=== PATIENT | female | born 1960 | race Caucasian/White ===

== ENCOUNTER → 2020-12-13 | Outpatient (CLI) | payer OTHER ==
[~2020-12-13] MED LIST: ACAM0.05 PO; FOLI1TAB11 PO; LISI10TA22 PO; MELATONIN PO; MULT1TAB8 PO; NICO14DI3 TD; OXAZ30CA2 PO; TYLE325T5 PO; VITAMIN B-1100 M4 PO
== END ==
LOC: M LABSMTC 11:49
PROVIDERS: ATTEND Family Medicine
DX: Z20.828 Contact with and (suspected) exposure to other viral communicable diseases (principal); Z11.59 Encounter for screening for other viral diseases
CPT/HCPCS: C9803; U0003

== ENCOUNTER 2021-03-29 04:14 | Emergency (ER) | payer OTHER ==
[~2021-03-29] VITALS: Ht 180.3 cm; Wt 87.0 kg
[2021-03-29] MEDS ORDERED: MILK140C PO (04:29)
[2021-03-29] MEDS ORDERED: NABU-71 PO (04:33)
[2021-03-29] MEDS ORDERED: BACL10TA2 OP (04:33)
[2021-03-29] MEDS ORDERED: CYCLOBENZAPRINE 10MG TABLET PO ONE (06:25)
[2021-03-29] MEDS ORDERED: LIDOCAINE 5% (LIDODERM) PATCH TD ONE (06:25)
[2021-03-29] MEDS ORDERED: ACETAMINOPHEN TAB 650MG DOSE (2X325MG) PO ONE (06:25)
[2021-03-29] MEDS ORDERED: MORPHINE 4 MG/ML 1ML VIAL/SYRINGE (J2270) IV ONE (07:30)
[2021-03-29] MEDS ORDERED: methylPREDNISolone 125MG 2ML VIAL IV ONE (07:30)
[2021-03-29] MEDS ORDERED: ONDANSETRON 4MG/2ML VIAL IV ONE (07:30)
[2021-03-29] MEDS ORDERED: LIDO5DIS41 TOP (09:42)
[2021-03-29] MEDS ORDERED: OXYC1TAB23 PO (09:42)
[2021-03-29 10:09] VITALS: BP 158/70
[2021-03-29] MEDS ORDERED: **NOTE PATIENT COMMENT** MISC XX SCH (21:00)
[2021-05-11] MEDS ORDERED: TRAM50TA2 PO (11:14)
[2021-05-11] MEDS ORDERED: CYCL-707 PO (11:14)
[2021-06-29] MEDS ORDERED: MM S100C PO (16:29)
[2021-07-14] MEDS ORDERED: OMEP-218 PO (16:33)
[2021-07-14] MEDS ORDERED: LORA1TAB4 PO (16:40)
[2021-08-11] MEDS ORDERED: OMEP-218 PO (15:06)
== END 2021-03-29 11:14 | disposition home or self-care (01) ==
LOC: M ED 04:14
DX: M51.34 Other intervertebral disc degeneration, thoracic region (principal); M47.814 Spondylosis without myelopathy or radiculopathy, thoracic region; R59.0 Localized enlarged lymph nodes; R93.7 Abnormal findings on diagnostic imaging of other parts of musculoskeletal system; M50.30 Other cervical disc degeneration, unspecified cervical region; M19.90 Unspecified osteoarthritis, unspecified site; Z86.16 Personal history of COVID-19; Z85.3 Personal history of malignant neoplasm of breast; Z92.21 Personal history of antineoplastic chemotherapy; Z92.3 Personal history of irradiation; F41.9 Anxiety disorder, unspecified; F32.9 Major depressive disorder, single episode, unspecified; F17.200 Nicotine dependence, unspecified, uncomplicated; F10.10 Alcohol abuse, uncomplicated; Z91.030 Bee allergy status; Z91.040 Latex allergy status
CPT/HCPCS: 72125; 72128; 96374; 96375; 99284; J2270; J2405; J2930

== ENCOUNTER → 2021-05-23 | Outpatient (CLI) | payer OTHER ==
[~2021-05-23] MED LIST changes: +BACL10TA2 OP; +CYCL-707; +LIDO5DIS41 TOP; +MILK140C PO; +NABU-71 PO; +OXYC1TAB23 PO; +TRAM50TA2
--- NOTE | 2021-05-23 19:00 | REP ---
INDICATION: RESTAGING HISTORY OF BREAST CANCER Z85.3. COMPARISON: None. TECHNIQUE: 9.38 mCi of FDG 18 was administered intravenously via the left AC. Approximately 45-60 minutes following the administration of the radiopharmaceutical, a PET-CT imaging was obtained from the skull base through the pubic symphysis. FINDINGS: Head and neck: There is a normal distribution of FDG activity in the visualized brain parenchyma. There are calcifications in both palatine tonsils consistent with chronic inflammation. There is calcific vascular disease of both carotid bifurcations. Chest: There is a mass in the mid esophagus, measuring 5.0 cm in vertical dimension 2.6 cm in transverse dimension and 1.5 cm in AP dimension, demonstrating hypermetabolic activity, max SUV 14.2. There are multiple reactive paraesophageal lymph nodes, the largest on the right, measuring 15 x 15 mm, demonstrating FDG activity, max SUV 3.0. There is no significant FDG activity in the pulmonary parenchyma. There are no pleural effusions. The heart size is upper limits of normal. There is no pericardial effusion. There is calcific vascular disease of the thoracic aorta and coronary arteries. Abdomen and pelvis: There are multiple small gallstones. There is calcific vascular disease of the abdominal aorta. Musculoskeletal: There are no lytic or sclerotic foci or areas of abnormal FDG activity within the visualized axial and appendicular skeleton. IMPRESSION: 1. Hypermetabolic mass in the mid esophagus consistent with a primary esophageal carcinoma. There is no abnormal dilatation of the esophagus above the mass. 2. Multiple reactive paraesophageal and mediastinal lymph nodes, the largest of which demonstrates abnormal FDG activity, consistent with metastatic disease. 3. Cholelithiasis. 4. Other findings as noted. <Electronically signed by Yoel Joe > 05/23/21 2829
== END ==
LOC: M PLARAD 07:32
PROVIDERS: ATTEND Specialist
DX: Z85.3 Personal history of malignant neoplasm of breast (principal); D48.0 Neoplasm of uncertain behavior of bone and articular cartilage; K80.20 Calculus of gallbladder without cholecystitis without obstruction; I70.0 Atherosclerosis of aorta; K22.89 Other specified disease of esophagus
CPT/HCPCS: 78815; A9552

== ENCOUNTER → 2021-06-30 | Outpatient (CLI) | payer OTHER ==
[~2021-06-30] MED LIST changes: +ATIV2TAB PO; -CYCL-707; +CYCL-707 PO; +DIFL50TA PO; +DOCU10ELUD GT; +DOCU5LIQ GT; +LEVO500T4 PO; +LORA1TAB4 PO; +LORA2TA PO; +MIDO5TA PO; +MM S100C PO; +MOXI400T11 PO; +NICO1DIS7 TOP; +NICO7DIS30 TD; +OMEP-173 PO; +ONDA8TAB8 PO; +PROC10TA5 PO; +RISATAB3 PO; -TRAM50TA2; +TRAM50TA2 PO
== END ==
LOC: M LABSMTC 09:08
PROVIDERS: ATTEND Anesthesiology
DX: Z01.812 Encounter for preprocedural laboratory examination (principal); Z20.822 Contact with and (suspected) exposure to COVID-19

== ENCOUNTER → 2021-06-30 | Outpatient (CLI) | payer OTHER ==
[~2021-06-30] MED LIST changes: +LIDOCAINE 1% MDV 20ML VIAL As Ordered ONE; +MIDAZOLAM INJ 2MG/2ML VIAL (J2250 PER 1MG) As Ordered ONE; +NS 1,000 ML IV SCH; +ceFAZolin 2 GM/D5W 50 ML IV BAG (J0690 PER 500MG) As Ordered ONE; +ceFAZolin SOD 2 GM in IV 1 EA IV ONE; +diphenhydrAMINE 50MG/ML VIAL (J1200) As Ordered ONE; +fentaNYL 100 MCG/2 ML INJECTION As Ordered ONE
[2021-06-30 13:00] VITALS: BP 110/70
== END ==
LOC: M IRPRO 09:24
PROVIDERS: ATTEND Specialist
DX: C50.919 Malignant neoplasm of unspecified site of unspecified female breast (principal); Z91.030 Bee allergy status; Z91.040 Latex allergy status
CPT/HCPCS: 36561; 99152; 99153; C1769; C1788; C1894; J0690; J1200; J1642; J1644; J2250; J3010

== ENCOUNTER 2021-07-01 12:10 | Day surgery (SDC) | payer OTHER ==
[~2021-07-01] VITALS: Ht 180.3 cm; Wt 84.8 kg
[~2021-07-01 12:10] MED LIST changes: -ATIV2TAB PO; -DIFL50TA PO; -DOCU10ELUD GT; -DOCU5LIQ GT; -LEVO500T4 PO; -LIDOCAINE 1% MDV 20ML VIAL As Ordered ONE; -LORA1TAB4 PO; -LORA2TA PO; -MIDAZOLAM INJ 2MG/2ML VIAL (J2250 PER 1MG) As Ordered ONE; -MIDO5TA PO; -MOXI400T11 PO; -NICO1DIS7 TOP; -NICO7DIS30 TD; +NS 1,000 ML IV ONE; -NS 1,000 ML IV SCH; -OMEP-173 PO; -ONDA8TAB8 PO; -PROC10TA5 PO; -RISATAB3 PO; -ceFAZolin 2 GM/D5W 50 ML IV BAG (J0690 PER 500MG) As Ordered ONE; -ceFAZolin SOD 2 GM in IV 1 EA IV ONE; -diphenhydrAMINE 50MG/ML VIAL (J1200) As Ordered ONE; -fentaNYL 100 MCG/2 ML INJECTION As Ordered ONE
--- OUTSIDE RECORDS SUMMARY | 2021-07-01 12:14 | CCD | Continuity of Care Document ---
Author Author Cedric DUNCAN MD Organization Unknown Address [address] [place] [address] Phone [phone] Care Team Providers Care Paint Stock Clerk Name Role Phone Mayra Cruz P.A.-C. AUTM [phone] Artis Jaimes M.D. AUTM Unavailable Problems Active Problems Provider Date Screening for malignant neoplasm of colon Iliana Cisneros Onset: 05/15/2012 Social History Type Date Description Comments Sex Unknown ETOH Use 5-7 a day Tobacco Use Start: Unknown Smokes 1/2 Pack A Day - 1 PPD Allergies and adverse reactions Active Allergies Criticality Reaction | Severity Comments Date Latex Unable to assess criticality 05/03/2012 Bee Sting Unable to assess criticality 03/08/2015 Medications Active Medications SIG Qnty Indications Ordering Provide r Date Tramadol HCL 50mg Tablets 1-2 every 6 hours as needed for pain after surgery Unknown Flexeral 2 daily Unknown Stool Softener 100mg Capsules take one capsule by mouth twice a day before a meal (avoid/ hold if having diarrhea) Unknown History Medications No Active Medications Unknown 07/2020 - 06/29/2021 Immunizations Description No Information Available Vital Signs Date Vital Result Comment 06/29/2021 11:07am BP Systolic 142 mmHg BP Diastolic 92 mmHg Height 72 inches 6'0" Weight 189.00 lb BMI (Body Mass Index) 25.6 kg/m2 [place] Body Weight 160 lb Weight 85.730 kg BSA (Body Surface Area) 2.08 m2 03/08/2015 10:17am BP Systolic 150 mmHg BP Diastolic 90 mmHg Height 72 inches 6'0" Weight 231.50 lb BMI (Body Mass Index) 31.4 kg/m2 [place] Body Weight 160 lb Weight 105.008 kg BSA (Body Surface Area) 2.27 m2 Results Description No Information Available Procedures Date Code Description Status 06/29/2021 08647 Office/Outpatient New Moderate M DM 45-59 Minutes Completed Medical Devices Description No Information Available Encounters Type Date Location Provider Dx Diagnosis Office Visit 06/29/2021 10:45a [facility] Pra ctice Gio Duncan MD R93.3 Abnormal findings on dx imag ing of prt digestive tract R13.10 Dysphagia, unspecified Assessments Date Code Description Provider 06/29/2021 R93.3 Abnormal findings on diagnostic imaging of other parts of digestive tract Gio Duncan MD 06/29/2021 R13.10 Dysphagia, unspecified Gio freeman MD Plan of Treatment Future Appointment(s):* 07/01/2021 1:45 pm - Gio Duncan MD at [facility] 06/29/2021 - Gio Duncan MD* R93.3 Abnormal findings on diagnostic imaging of other parts of digestive tract * R13.10 Dysphagia, unspecified * * New Orders:* EGD/Upper Endoscopy, Ordered: 06/29/21 Functional Status Description No Information Available Mental Status Description No Information Available Referrals Refer to Reason for Referral Status Appt Date Gio Duncan M.D. K22.89-OTHER SPECIFIED DISEASE OF ESOPHAGUS Scheduled 06/29/2021 [facility], Gastroenterology [address], [address] [place] [address] [phone]
--- OUTSIDE RECORDS SUMMARY | 2021-07-01 12:14 | CCD ---
Author Author [facility] Organization [facility] Address Unknown Phone Unavailable Care Team Providers Care Resident Physician In Radiology Name Role Phone Monica Beckett Unavailable PROBLEMS Type Condition ICD9-CM Code [id number] Code Onset Dates Condition S tatus W/U Status Risk SNOMED Code Notes Problem Elevated blood pressure 796.2 Active confirmed 94341477 Problem Lower extremity edema 782.3 Active confirmed 580598920 Problem Alcohol abuse 305.00 Active confirmed 676905 05 Problem Personal history of breast cancer V10.3 Active confirmed 742430776 Problem Elevated liver enzymes 790.5 Active confirmed 651801475 Problem Chronic diarrhea 787.91 Active confirmed 236 556896 Problem Tachycardia 785.0 Active confirmed 3178469 Problem History of breast cancer Z85.3 Active confirmed 520160013 We will refer her to the [facility] Problem Insomnia 780.52 Active confirmed 931840990 Problem Other chronic pain G89.29 Active confirmed 8 2542425 Problem Hypertension 401.9 Active confirmed 9756535 3 Problem GERD (gastroesophageal reflux disease) 530.81 A ctive confirmed 663768517 Problem Pancytopenia 284.19 Active confirmed 1254973 05 Problem Macrocytosis 289.89 Active confirmed 6581630 00 Problem H/O malignant neoplasm of female breast V10.3 Active confirmed 598754452 ALLERGIES Allergen (clinical drug ingredient) Drug/Non Drug Allergy do cumented on EMR Reaction Allergy Type Onset Date Status Bee Sting Anaphylaxis Drug Allergy Active Latex (for allergy use only) swelling Non Drug Allergy Active ENCOUNTERS from 1959 to 2021-05-10 Encounter Location Date Provider Diagnosis [address] [place] [address] Mar, Monica Beckett IMMUNIZATIONS No Information SOCIAL HISTORY Tobacco Use: Social History Observation Description Date Details (start date - stop date) Current Smoker Sex Assigned At : Social History Observation Description Sex Assigned At Unknown Tobacco Use: Question Answer Notes Are you a: current smoker REASON FOR REFERRAL No Information VITAL SIGNS No information MEDICATIONS Medication SIG (Take, Route, Frequency, Duration) Notes Start Da te End Date Status COMPRESSION STOCKINGS 1 as directed dx:782.3 Jan, Not-Taking Omeprazole 40 mg 1 capsule Orally Once a day Dec, Not-Taking Multivitamin _ 1 tab(s) Orally once a day Not-Taking Cyclobenzaprine HCl 10 MG 1 tablet as needed for muscl e spasms Orally 3 times a day for 30 Days Mar, Active Nabumetone 500 MG 2 tablets Orally Once a day Active Milk Thistle 1000 MG as directed Orally 4 caps daily Active Folic Acid 1 MG 1 tablet Orally Once a day for 30 days Not-Taking Blood Pressure Kit 1 as directed dx:401.9 Jan, Not-Taking Lidocaine Pain Relieving 4 % as directed Externally Feb Active Vitamin B-1 100 MG 1 tablet Orally Once a day for 30 days Not-Taking traMADol HCl 50 MG 1 tablet as needed Orally 3 times a day for 3 0 Days Mar, Active PROCEDURES No Information RESULTS No Results REASON FOR VISIT bone scan MEDICAL (GENERAL) HISTORY Type Description Date Medical History Breast cancer - 2004 s/p lum pectomy - patient has not had any routine f/u in 3-4 years including mammograms. Medical History Hypertension Medical History Dependent LE edema. Medical History Borderline hyperlipidemia - 10 year ASCV D risk 6.7% (02/2014) Medical History Etoh abuse - Liver u/s 5 - normal liver, pancreas and gallbladder. Medical History Fatty Liver per CT - 12/2014 Medical History Chronic low back pain Medical History Intervertebral diseas of cervical spine per [place] Surgical History lumpectomy 2004 Surgical History Colonoscopy 2012 Surgical History COVID vaccine - has question s about where and how to get it (discussed 04/11/2021) Hospitalization History childbirth x1 Hospitalization History low b/p 12/2014 Hospitalization History right lumpectomy, breast cancer, unk nown type 2006 Goals Section No Information Health Concerns No Information MEDICAL EQUIPMENT No Information MENTAL STATUS No Information FUNCTIONAL STATUS No Information ASSESSMENTS No Information PLAN OF TREATMENT Medication Medication Name Sig Start Date Stop Date Cyclobenzaprine HCl 10 MG 1 tablet as needed for muscl e spasms Orally 3 times a day for 30 Days Mar, traMADol HCl 50 MG 1 tablet as needed Orally 3 times a day for 30 Days Mar, Next Appt Details Provider Name:Monica Beckett, 10-2 0 09:00:00 AM, [address] [facility] [address] [facility], , [place], [address], Insurance Providers Payer Name Payer Address Payer Phone Insured Name Patient Relati onship to Insured Coverage Start Date Coverage End Date [facility] [employer] [address] [facility] [phone] [employer]FFY HIGGINBOTHAM self
--- OUTSIDE RECORDS SUMMARY | 2021-07-01 12:14 | CCD ---
Author Author [facility] Organization [facility] Address Unknown Phone Unavailable Care Team Providers Care Inspector Barrel Name Role Phone Monica Beckett Unavailable PROBLEMS Type Condition ICD9-CM Code LAC35-ON Code Onset Dates Condition S tatus W/U Status Risk SNOMED Code Notes Problem Elevated blood pressure 796.2 Active confirmed 49305885 Problem Lower extremity edema 782.3 Active confirmed 994056315 Problem Alcohol abuse 305.00 Active confirmed 616391 05 Problem Personal history of breast cancer V10.3 Active confirmed 405436697 Problem Elevated liver enzymes 790.5 Active confirmed 814087702 Problem Chronic diarrhea 787.91 Active confirmed 236 537833 Problem Tachycardia 785.0 Active confirmed 9794600 Problem History of breast cancer Z85.3 Active confirmed 333319299 We will refer her to the [facility] Problem Insomnia 780.52 Active confirmed 756182146 Problem Other chronic pain G89.29 Active confirmed 8 1022761 Problem Hypertension 401.9 Active confirmed 0422236 3 Problem GERD (gastroesophageal reflux disease) 530.81 A ctive confirmed 634172038 Problem Pancytopenia 284.19 Active confirmed 8721774 05 Problem Macrocytosis 289.89 Active confirmed 0869335 00 Problem H/O malignant neoplasm of female breast V10.3 Active confirmed 829037403 ALLERGIES Allergen (clinical drug ingredient) Drug/Non Drug Allergy do cumented on EMR Reaction Allergy Type Onset Date Status Bee Sting Anaphylaxis Drug Allergy Active Latex (for allergy use only) swelling Non Drug Allergy Active ENCOUNTERS from 1960 to 2021-05-09 Encounter Location Date Provider Diagnosis [address] [phone] [place] [address] 16 Sep, [address] [place] [address] IMMUNIZATIONS No Information SOCIAL HISTORY Tobacco Use: [...] Information RESULTS No Results REASON FOR VISIT Labs/ Pathology MEDICAL (GENERAL) HISTORY Type Description Date Medical [...] Mar, Next Appt Details Provider Name:Monica Beckett, 2020-10-2 0 09:00:00 AM, [address] [facility] , [place], [address], Insurance Providers Payer Name Payer Address Payer Phone Insured Name Patient Relati onship to Insured Coverage Start Date Coverage End Date [facility] COMM[facility] PLAN [facility] [place] [place] [address] [facility] [address] BUFFY HIGGINBOTHAM self
--- OUTSIDE RECORDS SUMMARY | 2021-07-01 12:14 | CCD ---
Author Author [facility] Organization [facility] Address Unknown Phone Unavailable Care Team Providers Care Child Support Officer Name Role Phone Monica Beckett Unavailable PROBLEMS Type Condition ICD9-CM Code USJ69-FB Code Onset Dates Condition S tatus W/U Status Risk SNOMED Code Notes Problem Elevated blood pressure 796.2 Active confirmed 48450045 Problem Lower extremity edema 782.3 Active confirmed 277974915 Problem Alcohol abuse 305.00 Active confirmed 184069 05 Problem Personal history of breast cancer V10.3 Active confirmed 773979564 Problem Elevated liver enzymes 790.5 Active confirmed 138775400 Problem Chronic diarrhea 787.91 Active confirmed 236 503932 Problem Tachycardia 785.0 Active confirmed 5564056 Problem History of breast cancer Z85.3 Active confirmed 802808401 We will refer her to the [facility] Problem Insomnia 780.52 Active confirmed 655705188 Problem Other chronic pain G89.29 Active confirmed 8 1531748 Problem Hypertension 401.9 Active confirmed 0150547 3 Problem GERD (gastroesophageal reflux disease) 530.81 A ctive confirmed 928917411 Problem Pancytopenia 284.19 Active confirmed 5802391 05 Problem Macrocytosis 289.89 Active confirmed 4830286 00 Problem H/O malignant neoplasm of female breast V10.3 Active confirmed 413861986 ALLERGIES Allergen (clinical drug ingredient) Drug/Non Drug Allergy do cumented on EMR Reaction Allergy Type Onset Date Status Latex (for allergy use only) swelling Drug Allergy Active Bees Anaphylaxis Non Drug Allergy Active ENCOUNTERS from 1959 to 2021-04-14 Encounter Location Date Provider Diagnosis [address] [phone] [place] [address] 16 Mar, 2021 Monica Beckett IMMUNIZATIONS No Information SOCIAL HISTORY [...] Information RESULTS No Results REASON FOR VISIT [facility] Referral MEDICAL (GENERAL) HISTORY Type Description Date Medical [...] Mar, Next Appt Details Provider Name:Monica Beckett, 2021-03-31 8 09:00:00 AM, [address] , , [place], [address], Insurance Providers Payer Name Payer Address Payer Phone Insured Name Patient Relati onship to Insured Coverage Start Date Coverage End Date [facility] [address] [facility] [address] BUFFY HIGGINBOTHAM self
--- OUTSIDE RECORDS SUMMARY | 2021-07-01 12:14 | CCD ---
Author Author [facility] Organization [facility] Address Unknown Phone Unavailable Care Team Providers Care Splicer Machine Operator Name Role Phone Monica Beckett Unavailable PROBLEMS Type Condition ICD9-CM Code BVL63-FF Code Onset Dates Condition S tatus W/U Status Risk SNOMED Code Notes Problem Elevated blood pressure 796.2 Active confirmed 33092055 Problem Lower extremity edema 782.3 Active confirmed 672077454 Problem Alcohol abuse 305.00 Active confirmed 027575 05 Problem Personal history of breast cancer V10.3 Active confirmed 916761887 Problem Elevated liver enzymes 790.5 Active confirmed 199082890 Problem Chronic diarrhea 787.91 Active confirmed 236 750336 Problem Tachycardia 785.0 Active confirmed 4729835 Problem History of breast cancer Z85.3 Active confirmed 950144058 She is now being followed by the [facility] Problem Insomnia 780.52 Active confirmed 461303748 Problem Other chronic pain G89.29 Active confirmed 8 1474495 Problem Hypertension 401.9 Active confirmed 5533696 3 Problem GERD (gastroesophageal reflux disease) 530.81 A ctive confirmed 782096967 Problem Pancytopenia 284.19 Active confirmed 6367076 05 Problem Macrocytosis 289.89 Active confirmed 8888255 00 Problem H/O malignant neoplasm of female breast V10.3 Active confirmed 061175704 ALLERGIES Allergen (clinical drug ingredient) Drug/Non Drug Allergy do cumented on EMR Reaction Allergy Type Onset Date Status Bee Sting Anaphylaxis Drug Allergy Active Latex Latex swelling Drug Allergy Active ENCOUNTERS from 1960 to 2021-06-26 Encounter Location Date Provider Diagnosis [facility] [address] [place] [address] May, Monica Beckett Cervicalgia M54.2 ; Pain in thoracic spi ne M54.6 ; Low back pain M54.5 ; Other chronic pain G89.29 and History of breast cancer Z85.3 IMMUNIZATIONS No Information SOCIAL HISTORY Tobacco Use: Social History Observation Description Date Details (start date - stop date) Current Smoker Sex Assigned At : Social History Observation Description Sex Assigned At Unknown Audit Question Answer Notes Total Score: 1 Interpretation: Alcohol Education Drug and Alcohol Question Answer Notes Total Score: 0 Interpretation: No problems reported Tobacco Use: Question Answer Notes Are you a: current smoker REASON FOR REFERRAL No Information VITAL SIGNS Weight 193 lbs May, Weight-kg 87.54 kg May, Height 5'10" in May, BMI 27.69 kg/m2 May, Heart Rate 129 /min May, Respiratory Rate 18 /min May, Temperature 97.1 degrees Fahrenheit May, Oximetry 100 May, Blood pressure systolic 130 mm Hg May, Blood pressure diastolic 82 mm Hg May, MEDICATIONS Medication SIG (Take, Route, Frequency, Duration) Notes Start Da te End Date Status Milk Thistle 1000 MG as directed Orally 4 caps daily Active traMADol HCl 50 MG 1 tablet as needed Orally 3 times a day for 3 0 Days Mar, Active Cyclobenzaprine HCl 10 MG 1 tablet as needed for muscl e spasms Orally 3 times a day for 30 Days Mar, Active PROCEDURES No Information RESULTS No Results REASON FOR VISIT est care MEDICAL (GENERAL) HISTORY Type Description Date Medical [...] No Information FUNCTIONAL STATUS No Information ASSESSMENTS Encounter Date Diagnosis Assessment Notes Treatment Notes Treatm ent Clinical Notes May, Cervicalgia (ICD-10 - M54.2) Stable on t ramadol and cyclobenzaprine May, Pain in thoracic spine (ICD-10 - M54.6) May, Low back pain (ICD-10 - M54.5) May, Other chronic pain (ICD-10 - G89.29) May, History of breast cancer (ICD-10 - Z85.3 ) She is now being followed by the [facility] PLAN OF TREATMENT Next Appt Details 3 Months, 30 m in Reason:back pain, smok ing Provider Name:Monica Beckett, 2021-08-01 1 08:30:00 AM, [address], , [place], [address], Follow Up:3 Months, 30 m inback pain, smoking Insurance Providers Payer Name Payer Address Payer Phone Insured Name Patient Relati onship to Insured Coverage Start Date Coverage End Date [facility] COMM[facility] PLAN [facility] [address] [facility] [phone] BUFFY HIGGINBOTHAM self
--- OUTSIDE RECORDS SUMMARY | 2021-07-01 12:14 | CCD | Continuity of Care Document ---
Author Author Cedric DUNCAN MD Organization Unknown Address [address] [place] [address] Phone [phone] Care Team Providers Care Architect Marine Name Role Phone Mayra Cruz P.A.-C. AUTM Artis Jaimes M.D. AUTM Unavailable Problems Active [...] lb BMI (Body Mass Index) 25.6 kg/m2 [place] Body Weight 160 lb Weight 85.730 kg BSA (Body Surface Area) 2.08 m2 03/08/2015 10:17am BP Systolic 150 mmHg BP Diastolic 90 mmHg Height 72 inches 6'0" Weight 231.50 lb BMI (Body Mass Index) 31.4 kg/m2 [place] Body Weight 160 lb Weight 105.008 kg BSA (Body Surface Area) 2.27 m2 Results Description No Information Available Procedures Date Code Description Status 06/29/2021 51694 Office/Outpatient New Moderate M DM 45-59 Minutes Completed Medical Devices Description No Information Available Encounters Type Date Location Provider Dx Diagnosis Office Visit 06/29/2021 10:45a [facility] Pra ctice Gio Duncan MD R93.3 Abnormal findings on dx imag ing of prt digestive tract R13.10 Dysphagia, unspecified Assessments Date Code Description Provider 06/29/2021 R93.3 Abnormal findings on diagnostic imaging of other parts of digestive tract Gio Duncan MD 06/29/2021 R13.10 Dysphagia, unspecified Gio freeman MD Plan of Treatment Future Appointment(s):* 07/01/2021 1:45 pm - Gio Duncan MD at [facility] 06/29/2021 - Gio Duncan MD* R93.3 Abnormal findings on diagnostic imaging of other parts of digestive tract * R13.10 Dysphagia, unspecified * * New Orders:* EGD/Upper Endoscopy, Ordered: 06/29/21 Functional Status Description No Information Available Mental Status Description No Information Available Referrals Refer to Reason for Referral Status Appt Date Gio Duncan M.D. K22.89-OTHER SPECIFIED DISEASE OF ESOPHAGUS Scheduled 06/29/2021 [facility], Gastroenterology [address], [address] [place] [address] [phone]
--- OUTSIDE RECORDS SUMMARY | 2021-07-01 12:14 | CCD | Continuity of Care Document ---
Author Author Cedric DUNCAN MD Organization Unknown Address [address] [place] [address] Phone [phone] Care Team Providers Care Forensic Toxicologist Name Role Phone Mayra Cruz P.A.-C. AUTM [...] lb BMI (Body Mass Index) 25.6 kg/m2 [place] Body Weight 160 lb Weight 85.730 kg BSA (Body Surface Area) 2.08 m2 03/08/2015 10:17am BP Systolic 150 mmHg BP Diastolic 90 mmHg Height 72 inches 6'0" Weight 231.50 lb BMI (Body Mass Index) 31.4 kg/m2 [place] Body Weight 160 lb Weight 105.008 kg BSA (Body Surface Area) 2.27 m2 Results Description No Information Available Procedures Date Code Description Status 06/29/2021 18550 Office/Outpatient New Moderate M DM 45-59 Minutes Completed Medical Devices Description No Information Available Encounters Type Date Location Provider Dx Diagnosis Office Visit 06/29/2021 10:45a [facility] Gastroenterology Pra ctice Gio Duncan MD R93.3 Abnormal findings on dx imag ing of prt digestive tract R13.10 Dysphagia, unspecified Assessments Date Code Description Provider 06/29/2021 R93.3 Abnormal findings on diagnostic imaging of other parts of digestive tract Gio Duncan MD 06/29/2021 R13.10 Dysphagia, unspecified Gio freeman MD Plan of Treatment Future Appointment(s):* 07/01/2021 1:45 pm - Gio Duncan MD at [facility] 06/29/2021 - Gio Duncan MD* R93.3 Abnormal findings on diagnostic imaging of other parts of digestive tract * R13.10 Dysphagia, unspecified * * New Orders:* EGD/Upper Endoscopy, Ordered: 06/29/21 Functional Status Description No Information Available Mental Status Description No Information Available Referrals Refer to Reason for Referral Status Appt Date Gio Duncan M.D. K22.89-OTHER SPECIFIED DISEASE OF ESOPHAGUS Scheduled 06/29/2021 [facility], Gastroenterology [address], [address] [place] [address] [phone]
--- OUTSIDE RECORDS SUMMARY | 2021-07-01 12:14 | CCD | Continuity of Care Document ---
Author Author Cedric DUNCAN MD Organization Unknown Address [address] [place] [id number] Phone [phone] Care Team Providers Care Shampoo Assistant Name Role Phone Mayra Cruz P.A.-C. AUTM [...] lb BMI (Body Mass Index) 25.6 kg/m2 [facility] Weight 160 lb Weight 85.730 kg BSA (Body Surface Area) 2.08 m2 03/08/2015 10:17am BP Systolic 150 mmHg BP Diastolic 90 mmHg Height 72 inches 6'0" Weight 231.50 lb BMI (Body Mass Index) 31.4 kg/m2 [facility] Weight 160 lb Weight 105.008 kg BSA (Body Surface Area) 2.27 m2 Results Description No Information Available Procedures Date Code Description Status 06/29/2021 25521 Office/Outpatient New Moderate M DM 45-59 Minutes Completed Medical Devices Description No Information Available Encounters Type Date Location Provider Dx Diagnosis Office Visit 06/29/2021 10:45a [facility] Gio Duncan MD R93.3 Abnormal findings on dx imag ing of prt digestive tract R13.10 Dysphagia, unspecified Assessments Date Code Description Provider 06/29/2021 R93.3 Abnormal findings on diagnostic imaging of other parts of digestive tract Gio Duncan MD 06/29/2021 R13.10 Dysphagia, unspecified Gio freeman MD Plan of Treatment Future Appointment(s):* 07/01/2021 1:45 pm - Gio Duncan MD at [facility] 06/29/2021 - Gio Duncan MD* R93.3 Abnormal findings on diagnostic imaging of other parts of digestive tract * R13.10 Dysphagia, unspecified * * New Orders:* EGD/Upper Endoscopy, Ordered: 06/29/21 Functional Status Description No Information Available Mental Status Description No Information Available Referrals Refer to Reason for Referral Status Appt Date Gio Duncan M.D. K22.89-OTHER SPECIFIED DISEASE OF ESOPHAGUS Scheduled 06/29/2021 [facility], Gastroenterology [address], [address] [place] [address] [phone]
--- OUTSIDE RECORDS SUMMARY | 2021-07-01 12:14 | CCD ---
Author Author [facility] Organization [facility] Address Unknown Phone Unavailable Care Team Providers Care Domestic Laundry Worker Name Role Phone JEAN CLAUDE VASQUEZ MD Unavailable Unavailable JEAN CLAUDE VASQUEZ MD Unavailable Unavailable JEAN CLAUDE VASQUEZ MD Unavailable Unavailable JEAN CLAUDE VASQUEZ MD Unavailable Unavailable JEAN CLAUDE VASQUEZ MD Unavailable Unavailable JEAN CLAUDE VASQUEZ MD Unavailable Unavailable JEAN CLAUDE VASQUEZ MD Unavailable Unavailable JEAN CLAUDE VASQUEZ MD Unavailable Unavailable JEAN CLAUDE VASQUEZ MD Unavailable Unavailable JEAN CLAUDE VASQUEZ MD Unavailable Unavailable JEAN CLAUDE VASQUEZ MD Unavailable Unavailable JEAN CLAUDE VASQUEZ MD Unavailable Unavailable JEAN CLAUDE VASQUEZ MD Unavailable Unavailable JEAN CLAUDE VASQUEZ MD Unavailable Unavailable JEAN CLAUDE VASQUEZ MD Unavailable Unavailable JEAN CLAUDE VASQUEZ MD Unavailable Unavailable JEAN CLAUDE VASQUEZ MD Unavailable Unavailable JEAN CLAUDE VASQUEZ MD Unavailable Unavailable JEAN CLAUDE VASQUEZ MD Unavailable Unavailable JEAN CLAUDE VASQUEZ MD Unavailable Unavailable JEAN CLAUDE VASQUEZ MD Unavailable Unavailable JEAN CLAUDE VASQUEZ MD Unavailable Unavailable JEAN CLAUDE VASQUEZ MD Unavailable Unavailable JEAN CLAUDE VASQUEZ MD Unavailable Unavailable JEAN CLAUDE VASQUEZ MD Unavailable Unavailable JEAN CLAUDE VASQUEZ MD Unavailable Unavailable REINDL, JEAN CLAUDE LEONARD Unavailable Unavailable REINDL, JEAN CLAUDE LEONARD Unavailable Unavailable REINDL, JEAN CLAUDE LEONARD Unavailable Unavailable REINDL, JEAN CLAUDE LEONARD Unavailable Unavailable REINDL, JEAN CLAUDE LEONARD Unavailable Unavailable REINDL, JEAN CLAUDE LEONARD Unavailable Unavailable REINDL, JEAN CLAUDE LEONARD Unavailable Unavailable REINDL, JEAN CLAUDE LEONARD Unavailable Unavailable REINDL, JEAN CLAUDE LEONARD Unavailable Unavailable REINDL, JEAN CLAUDE LEONARD Unavailable Unavailable REINDL, JEAN CLAUDE LEONARD Unavailable Unavailable REINDL, JEAN CLAUDE LEONARD Unavailable Unavailable REINDL, JEAN CLAUDE LEONARD Unavailable Unavailable REINDL, JEAN CLAUDE LEONARD Unavailable Unavailable REINDL, JEAN CLAUDE LEONARD Unavailable Unavailable REINDL, JEAN CLAUDE LEONARD Unavailable Unavailable JARAMILLO, G EDWARD RPA Unavailable Unavailable JARAMILLO, G EDWARD RPA Unavailable Unavailable JARAMILLO, G EDWARD RPA Unavailable Unavailable JARAMILLO, G EDWARD RPA Unavailable Unavailable JARAMILLO, G EDWARD RPA Unavailable Unavailable JARAMILLO, G EDWARD RPA Unavailable Unavailable JARAMILLO, G EDWARD RPA Unavailable Unavailable JARAMILLO, G EDWARD RPA Unavailable Unavailable JARAMILLO, G EDWARD RPA Unavailable Unavailable JARAMILLO, G EDWARD RPA Unavailable Unavailable JARAMILLO, G EDWARD RPA Unavailable Unavailable JARAMILLO, G EDWARD RPA Unavailable Unavailable JARAMILLO, G EDWARD RPA Unavailable Unavailable JARAMILLO, G EDWARD RPA Unavailable Unavailable JARAMILLO, G EDWARD RPA Unavailable Unavailable JARAMILLO, G EDWARD RPA Unavailable Unavailable JARAMILLO, G EDWARD RPA Unavailable Unavailable JARAMILLO, G EDWARD RPA Unavailable Unavailable JARAMILLO, G EDWARD RPA Unavailable Unavailable JARAMILLO, G EDWARD RPA Unavailable Unavailable JARAMILLO, G EDWARD RPA Unavailable Unavailable JARAMILLO, G EDWARD RPA Unavailable Unavailable JARAMILLO, G EDWARD RPA Unavailable Unavailable JARAMILLO, G EDWARD RPA Unavailable Unavailable JARAMILLO, G EDWARD RPA Unavailable Unavailable JARAMILLO, G EDWARD RPA Unavailable Unavailable JARAMILLO, G EDWARD RPA Unavailable Unavailable JARAMILLO, G EDWARD RPA Unavailable Unavailable JARAMILLO, G EDWARD RPA Unavailable Unavailable JARAMILLO, G EDWARD RPA Unavailable Unavailable JARAMILLO, G EDWARD RPA Unavailable Unavailable JARAMILLO, G EDWARD RPA Unavailable Unavailable JARAMILLO, G EDWARD RPA Unavailable Unavailable JARAMILLO, G EDWARD RPA Unavailable Unavailable JARAMILLO, G EDWARD RPA Unavailable Unavailable JARAMILLO, G EDWARD RPA Unavailable Unavailable JARAMILLO, G EDWARD RPA Unavailable Unavailable Re-disclosure Warning The records that you are about to access may contain information from federally-assisted alcohol or drug abuse programs. If such information is present, then the following federally mandated warning applies: This information has been disclosed to you from records protected by federal confidentiality rules (42 CFR part 2). The federal rules prohibit you from making any further disclosure of this information unless further disclosure is expressly permitted by the written consent of the person to whom it pertains or as otherwise permitted by 42 CFR part 2. A general authorization for the release of medical or other information is NOT sufficient for this purpose. The Federal rules restrict any use of the information to criminally investigate or prosecute any alcohol or drug abuse patient.The records that you are about to access may contain highly sensitive health information, the redisclosure of which is protected by Article 27-F of the [facility] Public Health law. If you continue you may have access to information: Regarding HIV / AIDS; Provided by facilities licensed or operated by the [facility] Office of Mental Health; or Provided by the [facility] Office for People With Developmental Disabilities. If such information is present, then the following [facility] mandated warning applies: This information has been disclosed to you from confidential records which are protected by state law. State law prohibits you from making any further disclosure of this information without the specific written consent of the person to whom it pertains, or as otherwise permitted by law. Any unauthorized further disclosure in violation of state law may result in a fine or care home sentence or both. A general authorization for the release of medical or other information is NOT sufficient authorization for further disc losure. Family History Family Member Name Family Member Gender Family Member Status Date o f Status Description Data Source(s) Unknown Unknown Problem MEDENT ([facility]) Unknown Female Problem MEDENT ([facility]) Encounters Encounter Providers Location Date Indications Data Source(s ) Outpatient Attender: JEAN CLAUDE Mcknight/Donavan/Britton/Fred escamilla 06/29/2021 09:45:00 AM EST MEDENT ([facility]) Unknown [address] [facility] [facility] [place] [address] 06/22/2021 12:00:00 AM EST eCW1 ([facility]) Outpatient [address] [facility] [place] [address] 05/31/2021 12:00:00 AM EDT eCW1 ([facility]) Unknown [address] [facility] [place] [address] 04/20/2021 12:00:00 AM EDT eCW1 ([facility]) [place] [address] [facility] [place] [address] 04/14/2021 12:00:00 AM EDT eCW1 ([facility]) [place] [address] [facility] [place] [address] 04/14/2021 12:00:00 AM EDT eCW1 ([facility]) [place] [address] [facility] [place] [address] 04/11/2021 12:00:00 AM EDT eCW1 ([facility]) Outpatient Attender: KAMRON JARAMILLO RPA 03/24 09:00:01 PM EDT - 03/24/2021 10:49:46 PM EDT DocuTap ([facility] ) Medications Medication Brand Name Start Date Product Form Dose Route Admi nistrative Instructions Pharmacy Instructions Status Indications Reaction Description Data Source(s) No Active Medications 06/29/2021 12:00:00 AM EST completed MEDENT ([facility] ) Cyclobenzaprine hydrochloride 10 MG Oral Tablet CYCLOBENZAPR INE HCL 04/11/2021 12:00:00 AM EDT tablet 90 TAKE ONE TABLET BY MOUTH THREE TIMES A DAY NEEDED FOR MUSCLE SPASMS TAKE ONE TABLET BY MOUTH THREE TIMES A D AY NEEDED FOR MUSCLE SPASMS SOLD: 04/11/2021 Сергей nelson tramadol hydrochloride 50 MG Oral Tablet traMADol HCl 50 MG traMADol HCl 50 MG 04/11/2021 12:00:00 AM EDT 1.0 {tablet_as_needed} active traMADol HCl 50 MG eCW1 ([facility]) Cyclobenzaprine hydrochloride 10 MG Oral Tablet Cyclob enzaprine HCl 10 MG Cyclobenzaprine HCl 10 MG 04/11/2021 12:00:00 AM EDT active Cyclobenzaprine HCl 10 MG eCW1 ([facility]) 50 mg 04/11/2021 12:00:00 AM EDT tablet 90 TAKE ONE TABLET BY MOUTH THREE TIMES A DAY NEEDED, MAXIMUM DAILY DOSE = 3 TABLETS TAKE ONE TABLET BY MOUTH THREE TIMES A DAY NEEDED, MAXIMUM DAILY DOSE = 3 TABLETS SOLD: 04/11/2021 [facility] tramadol hydrochloride 50 MG Oral Tablet traMADol HCl 50 MG traMADol HCl 50 MG 04/11/2021 12:00:00 AM EDT 1.0 {tablet_as_needed} active traMADol HCl 50 MG eCW1 ([facility]) tramadol hydrochloride 50 MG Oral Tablet traMADol HCl 50 MG traMADol HCl 50 MG 04/11/2021 12:00:00 AM EDT 1.0 {tablet_as_needed} active traMADol HCl 50 MG eCW1 ([facility]) tramadol hydrochloride 50 MG Oral Tablet traMADol HCl 50 MG traMADol HCl 50 MG 04/11/2021 12:00:00 AM EDT 1.0 {tablet_as_needed} active traMADol HCl 50 MG eCW1 ([facility]) tramadol hydrochloride 50 MG Oral Tablet traMADol HCl 50 MG traMADol HCl 50 MG 04/11/2021 12:00:00 AM EDT 1.0 {tablet_as_needed} active traMADol HCl 50 MG eCW1 ([facility]) Cyclobenzaprine hydrochloride 10 MG Oral Tablet Cyclob enzaprine HCl 10 MG Cyclobenzaprine HCl 10 MG 04/11/2021 12:00:00 AM EDT active Cyclobenzaprine HCl 10 MG eCW1 ([facility]) Cyclobenzaprine hydrochloride 10 MG Oral Tablet Cyclob enzaprine HCl 10 MG Cyclobenzaprine HCl 10 MG 04/11/2021 12:00:00 AM EDT active Cyclobenzaprine HCl 10 MG eCW1 ([facility]) Cyclobenzaprine hydrochloride 10 MG Oral Tablet Cyclob enzaprine HCl 10 MG Cyclobenzaprine HCl 10 MG 04/11/2021 12:00:00 AM EDT active Cyclobenzaprine HCl 10 MG eCW1 ([facility]) 50 mg 04/11/2021 12:00:00 AM EDT tablet 90 TAKE ONE TABLET BY MOUTH THREE TIMES A DAY NEEDED, MAXIMUM DAILY DOSE = 3 TABLETS TAKE ONE TABLET BY MOUTH THREE TIMES A DAY NEEDED, MAXIMUM DAILY DOSE = 3 TABLETS SOLD: 05/26/2021 [facility] Cyclobenzaprine hydrochloride 10 MG Oral Tablet Cyclob enzaprine HCl 10 MG Cyclobenzaprine HCl 10 MG 04/11/2021 12:00:00 AM EDT active Cyclobenzaprine HCl 10 MG eCW1 ([facility]) tramadol hydrochloride 50 MG Oral Tablet traMADol HCl 50 MG traMADol HCl 50 MG 04/11/2021 12:00:00 AM EDT 1.0 {tablet_as_needed} active traMADol HCl 50 MG eCW1 ([facility]) Cyclobenzaprine hydrochloride 10 MG Oral Tablet CYCLOBENZAPR INE HCL 04/11/2021 12:00:00 AM EDT tablet 90 TAKE ONE TABLET BY MOUTH THREE TIMES A DAY NEEDED FOR MUSCLE SPASMS TAKE ONE TABLET BY MOUTH THREE TIMES A D AY NEEDED FOR MUSCLE SPASMS SOLD: 06/06/2021 Сергей nelson Cyclobenzaprine hydrochloride 10 MG Oral Tablet Cyclob enzaprine HCl 10 MG Cyclobenzaprine HCl 10 MG 04/11/2021 12:00:00 AM EDT active Cyclobenzaprine HCl 10 MG eCW1 ([facility]) Lidocaine Pain Relieving 4 % Lidocaine Pain Relieving 4 % 12:00:00 AM EDT active Lidocaine Pain Re lieving 4 % eCW1 ([facility]) Lidocaine Pain Relieving 4 % Lidocaine Pain Relieving 4 % 12:00:00 AM EDT active Lidocaine Pain Re lieving 4 % eCW1 ([facility]) Lidocaine Pain Relieving 4 % Lidocaine Pain Relieving 4 % 12:00:00 AM EDT active Lidocaine Pain Re lieving 4 % eCW1 ([facility]) 5-325 mg 03/29/2021 12:00:00 AM EDT tablet 4 TAKE ONE TABLET BY MOUTH TWICE A DAY NEEDED FOR PAIN DO NOT TAKE WHILE TAKING BACLOFEN MUSCLE RELAXER MAXIMUM DAILY DOSE = 2 TAKE ONE TABLET BY MOUTH TWICE A DAY NEEDED FOR PAIN DO NOT TAKE WHILE TAKING BACLOFEN MUSCLE RELAXER MAXIMUM DAILY DOSE = 2 SOLD: 03/29/2021 Сергей Fischer Lidocaine Pain Relieving 4 % Lidocaine Pain Relieving 4 % 12:00:00 AM EDT active Lidocaine Pain Re lieving 4 % eCW1 ([facility]) 10 mg 03/25/2021 12:00:00 AM EDT tablet 14 TAKE ONE TABLET BY MOUTH AT BEDTIME FOR 14 DAYS TAKE ONE TABLET BY MOUTH AT BEDTIME FOR 14 DAYS SOLD: 03/25/2021 [facility] 500 mg 03/25/2021 12:00:00 AM EDT tablet 42 TAKE TWO TABLETS BY MOUTH EVERY DAY TAKE TWO TABLETS BY MOUTH EVERY DAY SOLD: 03/25/2021 [facility] Insurance Providers Payer name Policy type / Coverage type Policy ID Covered constitution party ID Covered constitution party's relationship to kent Policy [place] Plan Information [facility] [id number] SP [id number] [facility] [id number] SP [id number] Formerly [facility] Commercial [id number] Self [facility] Commercial [employer] [id number] Self [id number] [facility]) O [id number] S [id number] [facility]) P [id number] S [id number] [facility] [id number] SP [id number] [facility] [id number] SP 1 [id number] MEDICAID [id number] SP [id number] [facility] PLAN [facility] [id number] SP [id number] MEDICAID - CLINIC [id number] [facility] [id number] SP [id number] SELF PAY ONLY UNAVAILABLE SP UNAV AILABLE [facility] Health Maintenance Organization (HMO) [id number] Self [id number] Problems, Conditions, and Diagnoses Code Display Name Description Problem Type Effective Dates Data Source(s) G89.29 [id number] Other chronic pain Problem 04/11/2021 12:00: 00 AM EDT eCW1 ([facility]) Z85.3 [id number] History of breast cancer Problem 04/11/2021 12:00:00 AM EDT eCW1 ([facility]) Surgeries/Procedures Procedure Description Date Indications Data Source(s) OFFICE OUTPATIENT NEW 45 MINUTES 06/29/2021 12:00:00 A Surinder CUTLER ([facility], ) Results ID Date Data Source [id number] 12/13/2020 12:00:00 PM EDT [facility] Name Value Range Interpretation Code Description Data Shauna rce(s) Supporting Document(s) SARS-CoV-2 (COVID-19) RNA [Presence] in Respiratory specimen by ARCADIO with probe detection Positive for 2019-nCoV [facility] This lab was ordered by [facility] and reported by [facility]. Procedure Social History Code Duration Value Status Description Data Source(s ) Smoking 05/31/2021 12:00:00 AM EDT Current Smoker completed Curre nt Smoker eCW1 ([facility]) Smoking 05/31/2021 12:00:00 AM EDT Current Smoker completed Curre nt Smoker eCW1 ([facility]) Smoking 05/09/2021 12:00:00 AM EDT Current Smoker completed Curre nt Smoker eCW1 ([facility]) Smoking 05/09/2021 12:00:00 AM EDT Current Smoker completed Curre nt Smoker eCW1 ([facility]) Smoking 04/11/2021 12:00:00 AM EDT Current Smoker completed Curre nt Smoker eCW1 ([facility]) Smoking 04/11/2021 12:00:00 AM EDT Current Smoker completed Curre nt Smoker eCW1 ([facility]) Vital Signs ID Date Data Source UNK Name Value Range Interpretation Code Description Data Source(s) Systolic blood pressure 142 mm[Hg] 142 mm[Hg] M [facility] ([facility]) Diastolic blood pressure 92 mm[Hg] 92 mm[Hg] [facility] ([facility]) Body height 72 [in_i] 72 [in_i] [facility] ([facility]) 6'0" Body weight 189.00 [lb_av] 189.00 [lb_av] [facility]) Body mass index (BMI) [Ratio] 25.6 kg/m2 25.6 k g/m2 [facility]) [place] body weight 160 [lb_av] 160 [lb_av] [facility] ([facility]) Body weight 85.730 kg 85.730 kg [facility] ([facility], ) Body surface area Derived from formula 2.08 m2 2.08 m2 [facility] ([facility]) Body weight 193 [lb_av] 193 [lb_av] eCW1 ([facility]) Body weight 87.54 kg 87.54 kg eCW1 ([facility]) Body height [in_i] eCW1 ([facility]) Body mass index (BMI) [Ratio] 27.69 kg/m2 27.69 kg/m2 eCW1 ([facility]) Heart rate 129 /min 129 /min eCW1 ([facility]) Respiratory rate 18 /min 18 /min eCW1 ([facility]) Body temperature 97.1 [degF] 97.1 [degF] eCW1 ( [facility]) Systolic blood pressure 130 mm[Hg] 130 mm[Hg] e CW1 ([facility]) Diastolic blood pressure 82 mm[Hg] 82 mm[Hg] eCW1 ([facility]) Body weight 195.6 [lb_av] 195.6 [lb_av] eCW1 ([facility]) Body weight 88.72 kg 88.72 kg eCW1 ([facility]) Body height [in_i] eCW1 ([facility]) Body mass index (BMI) [Ratio] 28.06 kg/m2 28.06 kg/m2 eCW1 ([facility]) Heart rate 125 /min 125 /min eCW1 ([facility]) Respiratory rate 18 /min 18 /min eCW1 ([facility]) Body temperature 99.4 [degF] 99.4 [degF] eCW1 ( [facility]) Systolic blood pressure 126 mm[Hg] 126 mm[Hg] e CW1 ([facility]) Diastolic blood pressure 88 mm[Hg] 88 mm[Hg] eCW1 ([facility]) Patient Treatment Plan of Care Planned Activity Planned Date Details Description Data Source (s) tramadol hydrochloride 50 MG Oral Tablet 04/11/2021 12:00:00 AM EDT eCW1 ([facility]) Cyclobenzaprine hydrochloride 10 MG Oral Tablet 04/11/2021 12:00:00 AM EDT eCW1 ([facility]) tramadol hydrochloride 50 MG Oral Tablet 04/11/2021 12:00:00 AM EDT eCW1 ([facility]) Cyclobenzaprine hydrochloride 10 MG Oral Tablet 04/11/2021 12:00:00 AM EDT eCW1 ([facility]) tramadol hydrochloride 50 MG Oral Tablet 04/11/2021 12:00:00 AM EDT eCW1 ([facility]) Cyclobenzaprine hydrochloride 10 MG Oral Tablet 04/11/2021 12:00:00 AM EDT eCW1 ([facility]) tramadol hydrochloride 50 MG Oral Tablet 04/11/2021 12:00:00 AM EDT eCW1 ([facility]) Cyclobenzaprine hydrochloride 10 MG Oral Tablet 04/11/2021 12:00:00 AM EDT eCW1 ([facility])
--- OUTSIDE RECORDS SUMMARY | 2021-07-01 12:14 | CCD ---
Author Author [facility] Organization [facility] Address Unknown Phone Unavailable Care Team Providers Care Group Therapist Name Role Phone Monica Beckett Unavailable PROBLEMS Type Condition ICD9-CM Code [id number] Code Onset Dates Condition S tatus W/U Status Risk SNOMED Code Notes Problem Elevated blood pressure 796.2 Active confirmed 67166007 Problem Lower extremity edema 782.3 Active confirmed 330208019 Problem Alcohol abuse 305.00 Active confirmed 769117 05 Problem Personal history of breast cancer V10.3 Active confirmed 655746460 Problem Elevated liver enzymes 790.5 Active confirmed 613642810 Problem Chronic diarrhea 787.91 Active confirmed 236 704432 Problem Tachycardia 785.0 Active confirmed 1620196 Problem History of breast cancer Z85.3 Active confirmed 826971237 We will refer her to the [facility] Problem Insomnia 780.52 Active confirmed 134821177 Problem Other chronic pain G89.29 Active confirmed 8 1395444 Problem Hypertension 401.9 Active confirmed 4903709 3 Problem GERD (gastroesophageal reflux disease) 530.81 A ctive confirmed 120497120 Problem Pancytopenia 284.19 Active confirmed 0586640 05 Problem Macrocytosis 289.89 Active confirmed 4340429 00 Problem H/O malignant neoplasm of female breast V10.3 Active confirmed 963964446 ALLERGIES Allergen (clinical drug ingredient) Drug/Non Drug Allergy do cumented on EMR Reaction Allergy Type Onset Date Status Bee Sting Anaphylaxis Drug Allergy Active Latex Latex swelling Drug Allergy Active ENCOUNTERS from 1959 to 2021-06-22 Encounter Location Date Provider Diagnosis [id number] [place] [address] May, Monica Beckett IMMUNIZATIONS No Information SOCIAL HISTORY [...] Notes Start Da te End Date Status Cyclobenzaprine HCl 10 MG 1 tablet as needed for muscl e spasms Orally 3 times a day for 30 Days Mar, Active Milk Thistle 1000 MG as directed Orally 4 caps daily Active traMADol HCl 50 MG 1 tablet as needed Orally 3 times a day for 3 0 Days Mar, Active PROCEDURES No Information RESULTS No Results REASON FOR VISIT [facility] MEDICAL (GENERAL) HISTORY Type Description Date Medical [...] Information ASSESSMENTS No Information PLAN OF TREATMENT Next Appt Details Provider Name:Monica Beckett, 2021-01-3 1 08:30:00 AM, [id number] , , [place], [address], Insurance Providers Payer Name Payer Address Payer Phone Insured Name Patient Relati onship to Insured Coverage Start Date Coverage End Date [facility] [id number] [facility] [id number] [id number] self
--- OUTSIDE RECORDS SUMMARY | 2021-07-01 12:14 | CCD ---
Author Author [facility] Organization [facility] [employer] [facility] [employer] Address Unknown Phone Unavailable Care Team Providers Care Home Service Director Name Role Phone Monica Beckett Unavailable PROBLEMS Type Condition ICD9-CM Code NOB19-SP Code Onset Dates Condition S tatus W/U Status Risk SNOMED Code Notes Problem Elevated blood pressure 796.2 Active confirmed 50966900 Problem Lower extremity edema 782.3 Active confirmed 661214490 Problem Alcohol abuse 305.00 Active confirmed 199348 05 Problem Personal history of breast cancer V10.3 Active confirmed 831542817 Problem Elevated liver enzymes 790.5 Active confirmed 448656887 Problem Chronic diarrhea 787.91 Active confirmed 236 610108 Problem Tachycardia 785.0 Active confirmed 1924243 Problem History of breast cancer Z85.3 Active confirmed 745425675 We will refer her to the [facility] Problem Insomnia 780.52 Active confirmed 512605022 Problem Other chronic pain G89.29 Active confirmed 8 7513282 Problem Hypertension 401.9 Active confirmed 4864930 3 Problem GERD (gastroesophageal reflux disease) 530.81 A ctive confirmed 803748471 Problem Pancytopenia 284.19 Active confirmed 2398627 05 Problem Macrocytosis 289.89 Active confirmed 9843434 00 Problem H/O malignant neoplasm of female breast V10.3 Active confirmed 788157695 ALLERGIES Allergen (clinical drug ingredient) Drug/Non Drug Allergy do cumented on EMR Reaction Allergy Type Onset Date Status Latex (for allergy use only) swelling Drug Allergy Active Bees Anaphylaxis Non Drug Allergy Active ENCOUNTERS from 1960 to 2021-04-20 Encounter Location Date Provider Diagnosis [address] [place] [address] Mar, Monica Beckett Cervicalgia M54.2 ; Hospital discharge f ollow-up Z09 ; Pain in thoracic spine M54.6 ; Low back pain M54.5 ; Other chronic pain G89.29 and History of breast cancer Z85.3 IMMUNIZATIONS No Information SOCIAL HISTORY Tobacco Use: Social History Observation Description Date Details (start date - stop date) Current Smoker Sex Assigned At : Social History Observation Description Sex Assigned At Unknown Tobacco Use: Question Answer Notes Are you a: current smoker REASON FOR REFERRAL from 1960 to 2021-04-20 Reason Pain in cervical and thoraci c spines|[facility] referral ID [id number] Diagnosis 1 Pain in thoracic spine (M54. 6) Diagnosis 2 Cervicalgia (M54.2) Referral Organization [facility] Referring Provider First Name Monica Referring Provider Last Name Sujit Referring Provider Specialty Family [facility] Special[facility] Referral Priority Routine General Notes Monica Beckett PA 04/11/20 2:21:25 PM > Renetta Amaya 04/18/2021 4:20:02 PM > faxed Clinical Notes Monica Beckett PA 04/11/20 2:22:20 PM > This is a 60-year-old woman who has been suffering from intense throbbing pain in her thoracic spine and neck. She was seen in the [facility] ED on 03/29/2021, and imaging studies were positive for degenerative changes and the possibility of abnormal lesions around the T2 level. Unfortunately, she does have a history of breast cancer, for which she has not followed up for over 5 years. Please see the attached medical summary for details Reason History of breast cancer, mahi mpectomy, has not had follow-up in well over 5 years Diagnosis 1 History of breast cancer (Z8 5.3) Referral Organization [facility] Referring Provider First Name Monica Referring Provider Last Name Sujit Referring Provider Specialty Family Medicine Referred Provider [facility], Oncology Nurse Jose Antonio koch ([place]) Referred Provider Specialty Oncology Referral Priority Routine Referral Appointment Date 2021-05-11 General Notes Monica Beckett PA 04/11/20 2:24:38 PM > [facility] 4:28:21 PM > Renetta Burnett 04/19/2021 11:31:41 AM > pt aware of apt 05/11/21 11am Clinical Notes Monica Beckett PA 04/11/20 2:25:07 PM > This is a 60-year-old woman who has a history of breast cancer, with a lumpectomy but no chemotherapy in 2005. Unfortunately, she has not done any follow-up since then, and she is in need of some routine surveillance. Please see the attached medical summary for details VITAL SIGNS Weight 195.6 lbs Mar, Weight-kg 88.72 kg Mar, Height 5'10" in Mar, BMI 28.06 kg/m2 Mar, Heart Rate 125 /min Mar, Respiratory Rate 18 /min Mar, Temperature 99.4 degrees Fahrenheit Mar, Oximetry 98 Mar, Blood pressure systolic 126 mm Hg Mar, Blood pressure diastolic 88 mm Hg Mar, MEDICATIONS Medication SIG (Take, Route, Frequency, Duration) [...] Information RESULTS No Results REASON FOR VISIT [facility]/ [facility] ED F/U 03/29/2021 - Back Pain, ref to [place], ref to [facility] MEDICAL (GENERAL) HISTORY Type Description Date Medical [...] Notes Treatment Notes Treatm ent Clinical Notes Mar, Cervicalgia (ICD-10 - M54.2) Since she i s not responding to baclofen, but did respond to cyclobenzaprine in the hospital, I'm prescribing that Mar, Hospital discharge follow-up (ICD-10 - Z09) Mar, Pain in thoracic spine (ICD-10 - M54.6) She has done well with tramadol before, so we will start that, and I have asked her to continue the nabumetone for anti-inflammatory purposes. A referral will be made to Dr. Micheal Henderson of the [facility] This report was requested by: Monica Beckett | Reference #: [id number], dispensed oxycodone/APAP 5/325 mg #4 on 03/29/2021. No other prescriptions for controlled substances Mar, Low back pain (ICD-10 - M54.5) Mar, Other chronic pain (ICD-10 - G89.29) Mar, History of breast cancer (ICD-10 - Z85.3 ) We will refer her to the [facility] PLAN OF TREATMENT Medication Medication Name Sig Start Date Stop Date Cyclobenzaprine HCl 10 MG 1 tablet as needed for muscl e spasms Orally 3 times a day for 30 Days Mar, traMADol HCl 50 MG 1 tablet as needed Orally 3 times a day for 30 Days Mar, Treatment Notes Assessment Notes Clinical Notes Pain in thoracic spine This report was r equested by: Monica Sujit | Reference #: [id number], dispensed oxycodone/APAP 5/325 mg #4 on 03/29/2021. No other prescriptions for controlled substances Referrals Referral Date Details Pain in cervical and thoraci c spines|[facility] referral ID [id number], Orthopedics [facility] 2021-05-11 2021-05-11, History of breas t cancer, lumpectomy, has not had follow- up in well over 5 years, Oncology Nurse Navigator ([place] Appt Details as available new patient checkup Reason: Provider Name:Monica Beckett, 2021-03-31 8 09:00:00 AM, [address], , [place], [address], Insurance Providers Payer Name Payer Address Payer Phone Insured Name Patient Relati onship to Insured Coverage Start Date Coverage End Date [facility] [employer] [address] [facility] [id number] [employer] self
[2021-07-01] MEDS ORDERED: MIDAZOLAM INJ 2MG/2ML VIAL (J2250 PER 1MG) As Ordered ONE (13:51)
[2021-07-01] MEDS ORDERED: METOPROLOL 5 MG/5 ML VIAL As Ordered ONE (14:04)
[2021-07-01] MEDS ORDERED: propofoL 200 MG/20 ML VIAL As Ordered ONE ×2 (14:05→14:24)
[2021-07-01] MEDS ORDERED: LIDOCAINE 2% 100MG/5ML SDV (FOR ANES.) As Ordered ONE (14:09)
--- NOTE | 2021-07-01 14:33 | ROOR ---
Patient Name: Cedric Gracia Procedure Date: 07/01/2021 1:53 PM Date of : 1960 Age: 60 Room: [facility] Gender: Female Note Status: Finalized Procedure: Upper GI endoscopy Indications: Dysphagia, Abnormal PET scan of the GI tract Providers: Gio Duncan MD Referring MD: RANDALL Sarmiento PA-C, Artis Jaimes Md Requesting Provider: Medicines: Monitored Anesthesia Care Complications: No immediate complications. Procedure: Pre-Anesthesia Assessment: - The heart rate, respiratory rate, oxygen saturations, blood pressure, adequacy of pulmonary ventilation, and response to care were monitored throughout the procedure. The Endoscope was introduced through the mouth, and advanced to the second part of duodenum. The upper GI endoscopy was performed with difficulty due to a partially obstructing mass. Successful completion of the procedure was aided by withdrawing the scope and replacing with the 'babyscope'. The patient tolerated the procedure well. Findings: A large, fungating and ulcerating mass was found in the middle third of the esophagus, 27 to 33 cm from the incisors. The mass was partially obstructing and circumferential. Biopsies were taken with a cold forceps for histology. A small hiatal hernia was present. The entire examined stomach was normal. The examined duodenum was normal. Impression: - A partially obstructing (required the 6 mm Ultraslim scope), malignant appearing esophageal tumor was found in the middle third of the esophagus. Biopsied. - The lesion is located in the mid esophagus, is approximaltely 6 cm long, (from 27 to 33 cm from incisors). Distal to the lesion, there is normal appearing squamous mucosa down to the GE junction at 36 cm from incisors. The lesion does not cross into the stomach - Small hiatal hernia. - Normal stomach. - Normal examined duodenum. Recommendation: - Refer to an oncologist at the next available appointment. - Await pathology results. - Full liquid diet. Procedure Code(s): --- Professional --- 29065, Esophagogastroduodenoscopy, flexible, transoral; with biopsy, single or multiple Diagnosis Code(s): --- Professional --- R93.3, Abnormal findings on diagnostic imaging of other parts of digestive tract R13.10, Dysphagia, unspecified K44.9, Diaphragmatic hernia without obstruction or gangrene C15.4, Malignant neoplasm of middle third of esophagus CPT copyright 2019 [employer]. All rights reserved. The codes documented in this report are preliminary and upon transitional nurse review may be revised to meet current compliance requirements. Gio Duncan MD Gio Duncan MD 07/01/2021 2:32:59 PM Electronically signed by Gio Duncan MD Number of Addenda: 0 Note Initiated On: 07/01/2021 1:53 PM Estimated Blood Loss: Estimated blood loss: none.
[2021-07-01 15:00] VITALS: BP 123/67
== END 2021-07-01 15:02 | disposition home or self-care (01) ==
LOC: M OPP 12:10
PROVIDERS: ATTEND Internal Medicine Gastroenterology
DX: K44.9 Diaphragmatic hernia without obstruction or gangrene (principal); C15.9 Malignant neoplasm of esophagus, unspecified; R13.10 Dysphagia, unspecified; R93.3 Abnormal findings on diagnostic imaging of other parts of digestive tract; K21.9 Gastro-esophageal reflux disease without esophagitis; Z79.891 Long term (current) use of opiate analgesic; Z91.040 Latex allergy status; Z91.030 Bee allergy status; Z85.3 Personal history of malignant neoplasm of breast; Z92.21 Personal history of antineoplastic chemotherapy; Z92.3 Personal history of irradiation; F17.210 Nicotine dependence, cigarettes, uncomplicated
CPT/HCPCS: 43239; 88305; J2250

== ENCOUNTER → 2021-07-07 | Outpatient (CLI) | payer OTHER ==
[~2021-07-07] MED LIST changes: +ATIV2TAB PO; +DIFL50TA PO; +DOCU10ELUD GT; +DOCU5LIQ GT; +LEVO500T4 PO; +LORA1TAB4 PO; +LORA2TA PO; +MIDO5TA PO; +MOXI400T11 PO; +NICO1DIS7 TOP; +NICO7DIS30 TD; -NS 1,000 ML IV ONE; +OMEP-173 PO; +ONDA8TAB8 PO; +PROC10TA5 PO; +RISATAB3 PO
== END ==
LOC: M ONCR 08:59
PROVIDERS: ATTEND General Practice
DX: C15.9 Malignant neoplasm of esophagus, unspecified (principal); F17.210 Nicotine dependence, cigarettes, uncomplicated; Z85.3 Personal history of malignant neoplasm of breast; Z92.3 Personal history of irradiation; Z92.21 Personal history of antineoplastic chemotherapy; Z91.030 Bee allergy status; Z91.040 Latex allergy status; Z79.899 Other long term (current) drug therapy

== ENCOUNTER 2021-07-19 10:17 | Outpatient (RCR) | payer OTHER ==
[~2021-07-19 10:17] MED LIST changes: -ATIV2TAB PO; -DIFL50TA PO; -DOCU10ELUD GT; -DOCU5LIQ GT; -LEVO500T4 PO; -LORA2TA PO; -MIDO5TA PO; -MOXI400T11 PO; -NICO1DIS7 TOP; -NICO7DIS30 TD; -OMEP-173 PO; +OMEP-218 PO; -ONDA8TAB8 PO; -PROC10TA5 PO; -RISATAB3 PO
--- NOTE | 2021-07-28 10:44 | RADENCPD ---
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 She has experienced mounting dysphagia to liquids and solids for the past week. She calls today unable to take PO at all. She is thirsty and unable to pass even water. I asked her to present to the cancer center and I will facilitate direct admission for rehydration and PEG tube placement. ZENON DAVILA MD Jul 28, 2021 10:44
== END 2021-07-29 ==
LOC: M ONCR 10:17
PROVIDERS: ATTEND General Practice
DX: C15.4 Malignant neoplasm of middle third of esophagus (principal)

== ENCOUNTER 2021-07-28 12:34 | Inpatient (IN) | payer OTHER ==
[~2021-07-28] VITALS: Ht 182.9 cm; Wt 76.7 kg
[2021-07-28] MEDS: NICOTINE 14 MG/24 HR TRANSDERMAL TD SCH (09:00)
[~2021-07-28 12:34] MED LIST changes: +OMEP-173 PO; -OMEP-218 PO
[2021-07-28] MEDS ORDERED: NS 1,000 ML IV ONE (13:00)
[2021-07-28 14:07] LABS: BASO % 0.5 % (0.0-1.0); EOS # 0.2 10^3/uL (0.0-0.5); EOS % 2.5 % (0.0-3.0); HEMATOCRIT 40.2 % (36.0-47.0); HEMOGLOBIN 13.7 g/dl (12.0-15.5); LYMPH # 1.5 10^3/uL (1.5-5.0); LYMPH % 20.3 % (24.0-44.0); MEAN CORPUSCULAR HEMOGLOBIN 33.2 pg (27.0-33.0); MEAN CORPUSCULAR HGB CONC 34.1 g/dl (32.0-36.5); MEAN CORPUSCULAR VOLUME 97.3 fl (80.0-96.0); MONO # 0.6 10^3/uL (0.0-0.8); MONO % 7.5 % (2.0-8.0); NEUTROPHILS # 5.1 10^3/uL (1.5-8.5); NEUTROPHILS % 69.1 % (36.0-66.0); PLATELET COUNT, AUTOMATED 258 10^3/uL (150-450); RED BLOOD COUNT 4.13 10^6/uL (4.00-5.40); WHITE BLOOD COUNT 7.3 10^3/uL (4.0-10.0)
[2021-07-28 14:21] LABS: INR 1.11; PROTHROMBIN TIME 14.7 SECONDS (12.7-14.5)
[2021-07-28 14:22] LABS: PARTIAL THROMBOPLASTIN TIME 31.7 SECONDS (25.9-37.0)
[2021-07-28 14:30] LABS: ALBUMIN 3.2 GM/DL (3.2-5.2); ALT/SGPT 20 U/L (12-78); BILIRUBIN,DIRECT 0.4 MG/DL (0.0-0.2); BILIRUBIN,TOTAL 0.9 MG/DL (0.2-1.0); BLOOD UREA NITROGEN 12 MG/DL (7-18); CARBON DIOXIDE LEVEL 28 MEQ/L (21-32); CHLORIDE LEVEL 99 MEQ/L (98-107); CREATININE FOR GFR 0.53 MG/DL (0.55-1.30); GLOMERULAR FILTRATION RATE > 60.0 (>45); GLUCOSE, FASTING 105 MG/DL (70-100); POTASSIUM SERUM 3.6 MEQ/L (3.5-5.1); SODIUM LEVEL 136 MEQ/L (136-145); TOTAL PROTEIN 6.9 GM/DL (6.4-8.2)
[2021-07-28] MEDS ORDERED: HOME MED LIST COMPLETE! XX SCH (15:00)
[2021-07-28] MEDS ORDERED: LORazepam 2 MG/ML VIAL IV PRN (15:55)
[2021-07-28] MEDS ORDERED: MORPHINE 2 MG/ML 1ML VIAL (J2270) IV PRN (15:55)
[2021-07-28] MEDS ORDERED: D5W/0.45% SODIUM CHLORIDE 1,000 ML IV ONE (15:55)
[2021-07-28 16:51] LABS: HEMATOCRIT 39.3 % (36.0-47.0); HEMOGLOBIN 13.4 g/dl (12.0-15.5); MEAN CORPUSCULAR HEMOGLOBIN 33.1 pg (27.0-33.0); MEAN CORPUSCULAR HGB CONC 34.1 g/dl (32.0-36.5); PLATELET COUNT, AUTOMATED 236 10^3/uL (150-450); RED BLOOD COUNT 4.05 10^6/uL (4.00-5.40); WHITE BLOOD COUNT 6.8 10^3/uL (4.0-10.0)
[2021-07-28 17:16] LABS: ALBUMIN 3.2 GM/DL (3.2-5.2); ALT/SGPT 19 U/L (12-78); BILIRUBIN,TOTAL 0.9 MG/DL (0.2-1.0); BLOOD UREA NITROGEN 13 MG/DL (7-18); CALCIUM LEVEL 8.9 MG/DL (8.8-10.2); CARBON DIOXIDE LEVEL 27 MEQ/L (21-32); CHLORIDE LEVEL 101 MEQ/L (98-107); CREATININE FOR GFR 0.51 MG/DL (0.55-1.30); GLOMERULAR FILTRATION RATE > 60.0 (>45); GLUCOSE, FASTING 95 MG/DL (70-100); POTASSIUM SERUM 3.5 MEQ/L (3.5-5.1); SODIUM LEVEL 137 MEQ/L (136-145); TOTAL PROTEIN 6.8 GM/DL (6.4-8.2)
[2021-07-28] MEDS: PANTOPRAZOLE 40MG VIAL (C9113 PER 1) IV SCH (18:00)
[2021-07-28 21:37] VITALS: BP 111/74
[2021-07-29 06:00] VITALS: BP 107/67
[2021-07-29 06:33] LABS: HEMOGLOBIN 12.6 g/dl (12.0-15.5); MEAN CORPUSCULAR HEMOGLOBIN 33.3 pg (27.0-33.0); MEAN CORPUSCULAR HGB CONC 34.1 g/dl (32.0-36.5); MEAN CORPUSCULAR VOLUME 97.9 fl (80.0-96.0); PLATELET COUNT, AUTOMATED 241 10^3/uL (150-450); RED BLOOD COUNT 3.78 10^6/uL (4.00-5.40); WHITE BLOOD COUNT 5.5 10^3/uL (4.0-10.0)
[2021-07-29 06:58] LABS: BLOOD UREA NITROGEN 10 MG/DL (7-18); CALCIUM LEVEL 8.7 MG/DL (8.8-10.2); CARBON DIOXIDE LEVEL 26 MEQ/L (21-32); CHLORIDE LEVEL 104 MEQ/L (98-107); CREATININE FOR GFR 0.48 MG/DL (0.55-1.30); GLOMERULAR FILTRATION RATE > 60.0 (>45); GLUCOSE, FASTING 106 MG/DL (70-100); POTASSIUM SERUM 3.2 MEQ/L (3.5-5.1); SODIUM LEVEL 139 MEQ/L (136-145)
[2021-07-29] MEDS: BISACODYL 10 MG SUPP PR SCH (09:00)
[2021-07-29] MEDS: ENOXAPARIN 40MG/0.4ML SYRINGE (J1650 PER 10MG) SC SCH (09:09)
[2021-07-29] MEDS: NICOTINE 14 MG/24 HR TRANSDERMAL TD SCH (09:10)
[2021-07-29] MEDS: KCL 10MEQ/100ML SWI (KRUN) 10 MEQ in IV 1 EA IV SCH ×4 (09:11→13:42)
[2021-07-29 14:00] VITALS: BP 111/77
[2021-07-29] MEDS: PANTOPRAZOLE 40MG VIAL (C9113 PER 1) IV SCH (17:22)
[2021-07-29] MEDS: D5W/0.45% SODIUM CHLORIDE 1,000 ML IV SCH ×2 (17:25→20:15)
[2021-07-29] MEDS ORDERED: FAT EMULSION IV 20% 500 ML IV SCH (18:00)
[2021-07-29] MEDS: AMINO AC/ELECTROLYTE/DEX/CALC 1,000 ML IV SCH (18:16)
[2021-07-29 20:57] LABS: APPEARANCE, URINE CLOUDY (CLEAR); BACTERIA, URINE AUTO NEGATIVE (NEGATIVE); BILIRUBIN, URINE AUTO 1+ (NEGATIVE); BLOOD, URINE BLOOD NEGATIVE (NEGATIVE); CALCIUM OXALATE CRYSTALS SMALL; COLOR, URINE AMBER (YELLOW); GLUCOSE, URINE (UA) AUTO NEGATIVE (NEGATIVE); KETONE, URINE AUTO 1+ mg/dL (NEGATIVE); LEUKOCYTE ESTERASE, URINE AUTO NEGATIVE (NEGATIVE); MUCUS, URINE LARGE (NEGATIVE); NITRITE, URINE AUTO NEGATIVE (NEGATIVE); PROTEIN, URINE AUTO 1+ mg/dL (NEGATIVE); RBC, URINE AUTO 2 /HPF (0-3); SPECIFIC GRAVITY URINE AUTO 1.026 (1.002-1.035); SQUAMOUS EPITHELIAL CELL UR AU 5 /HPF (0-6); WBC, URINE AUTO 3 /HPF (0-3)
[2021-07-29 22:00] VITALS: BP 149/94
[2021-07-30 06:00] VITALS: BP 117/81
[2021-07-30 06:15] LABS: HEMATOCRIT 35.7 % (36.0-47.0); HEMOGLOBIN 12.2 g/dl (12.0-15.5); MEAN CORPUSCULAR HEMOGLOBIN 33.2 pg (27.0-33.0); MEAN CORPUSCULAR HGB CONC 34.2 g/dl (32.0-36.5); PLATELET COUNT, AUTOMATED 242 10^3/uL (150-450); RED BLOOD COUNT 3.68 10^6/uL (4.00-5.40)
[2021-07-30] MEDS: D5W/0.45% SODIUM CHLORIDE 1,000 ML IV SCH (06:16)
[2021-07-30 06:41] LABS: BLOOD UREA NITROGEN 7 MG/DL (7-18); CALCIUM LEVEL 8.5 MG/DL (8.8-10.2); CARBON DIOXIDE LEVEL 26 MEQ/L (21-32); CHLORIDE LEVEL 104 MEQ/L (98-107); CREATININE FOR GFR 0.43 MG/DL (0.55-1.30); GLOMERULAR FILTRATION RATE > 60.0 (>45); GLUCOSE, FASTING 129 MG/DL (70-100); POTASSIUM SERUM 3.5 MEQ/L (3.5-5.1); SODIUM LEVEL 136 MEQ/L (136-145)
[2021-07-30] MEDS: ENOXAPARIN 40MG/0.4ML SYRINGE (J1650 PER 10MG) SC SCH (09:42)
[2021-07-30] MEDS: BISACODYL 10 MG SUPP PR SCH (09:42)
[2021-07-30] MEDS: NICOTINE 14 MG/24 HR TRANSDERMAL TD SCH (09:43)
[2021-07-30] MEDS: AMINO AC/ELECTROLYTE/DEX/CALC 1,000 ML IV SCH ×2 (11:14→23:33)
[2021-07-30 14:00] VITALS: BP 113/77
[2021-07-30] MEDS: PANTOPRAZOLE 40MG VIAL (C9113 PER 1) IV SCH (17:19)
[2021-07-30] MEDS ORDERED: FAT EMULSION IV 20% 500 ML IV SCH (18:00)
[2021-07-30 22:00] VITALS: BP 126/89
[2021-07-31 06:00] VITALS: BP 122/82
[2021-07-31 07:21] LABS: HEMATOCRIT 36.8 % (36.0-47.0); HEMOGLOBIN 12.7 g/dl (12.0-15.5); MEAN CORPUSCULAR HEMOGLOBIN 33.3 pg (27.0-33.0); MEAN CORPUSCULAR HGB CONC 34.5 g/dl (32.0-36.5); MEAN CORPUSCULAR VOLUME 96.6 fl (80.0-96.0); PLATELET COUNT, AUTOMATED 249 10^3/uL (150-450); RED BLOOD COUNT 3.81 10^6/uL (4.00-5.40); WHITE BLOOD COUNT 5.6 10^3/uL (4.0-10.0)
[2021-07-31 07:41] LABS: BLOOD UREA NITROGEN 7 MG/DL (7-18); CALCIUM LEVEL 8.5 MG/DL (8.8-10.2); CARBON DIOXIDE LEVEL 24 MEQ/L (21-32); CHLORIDE LEVEL 103 MEQ/L (98-107); CREATININE FOR GFR 0.43 MG/DL (0.55-1.30); GLOMERULAR FILTRATION RATE > 60.0 (>45); GLUCOSE, FASTING 108 MG/DL (70-100); POTASSIUM SERUM 3.7 MEQ/L (3.5-5.1); SODIUM LEVEL 135 MEQ/L (136-145)
[2021-07-31] MEDS: NICOTINE 14 MG/24 HR TRANSDERMAL TD SCH (09:29)
[2021-07-31] MEDS: BISACODYL 10 MG SUPP PR SCH (09:32)
[2021-07-31] MEDS: ENOXAPARIN 40MG/0.4ML SYRINGE (J1650 PER 10MG) SC SCH (09:32)
[2021-07-31] MEDS: AMINO AC/ELECTROLYTE/DEX/CALC 1,000 ML IV SCH ×2 (10:40→23:27)
[2021-07-31 14:00] VITALS: BP 120/81
[2021-07-31] MEDS ORDERED: FAT EMULSION IV 20% 500 ML IV SCH (18:00)
[2021-07-31] MEDS: PANTOPRAZOLE 40MG VIAL (C9113 PER 1) IV SCH (18:10)
[2021-07-31 21:00] VITALS: BP 117/80
[2021-08-01 06:29] VITALS: BP 114/66
[2021-08-01 07:17] LABS: HEMATOCRIT 39.4 % (36.0-47.0); HEMOGLOBIN 13.3 g/dl (12.0-15.5); MEAN CORPUSCULAR HEMOGLOBIN 32.7 pg (27.0-33.0); MEAN CORPUSCULAR HGB CONC 33.8 g/dl (32.0-36.5); MEAN CORPUSCULAR VOLUME 96.8 fl (80.0-96.0); PLATELET COUNT, AUTOMATED 252 10^3/uL (150-450); RED BLOOD COUNT 4.07 10^6/uL (4.00-5.40); WHITE BLOOD COUNT 6.2 10^3/uL (4.0-10.0)
[2021-08-01 07:41] LABS: BLOOD UREA NITROGEN 8 MG/DL (7-18); CALCIUM LEVEL 8.8 MG/DL (8.8-10.2); CARBON DIOXIDE LEVEL 25 MEQ/L (21-32); CHLORIDE LEVEL 104 MEQ/L (98-107); GLOMERULAR FILTRATION RATE > 60.0 (>45); GLUCOSE, FASTING 123 MG/DL (70-100); POTASSIUM SERUM 3.8 MEQ/L (3.5-5.1); SODIUM LEVEL 134 MEQ/L (136-145)
[2021-08-01] MEDS: BISACODYL 10 MG SUPP PR SCH (09:00)
[2021-08-01] MEDS: ENOXAPARIN 40MG/0.4ML SYRINGE (J1650 PER 10MG) SC SCH (09:52)
[2021-08-01] MEDS: NICOTINE 14 MG/24 HR TRANSDERMAL TD SCH (09:53)
[2021-08-01 14:00] VITALS: BP 111/75
[2021-08-01] MEDS: AMINO AC/ELECTROLYTE/DEX/CALC 1,000 ML IV SCH (14:03)
[2021-08-01] MEDS ORDERED: FAT EMULSION IV 20% 500 ML IV SCH (18:00)
[2021-08-01] MEDS: PANTOPRAZOLE 40MG VIAL (C9113 PER 1) IV SCH (18:19)
[2021-08-01] MEDS ORDERED: KETOROLAC 30 MG/ML 1ML VIAL IV ONE (20:20)
[2021-08-01] MEDS ORDERED: MORPHINE 2 MG/ML 1ML VIAL (J2270) IV PRN (20:20)
[2021-08-01 22:00] VITALS: BP 118/86
[2021-08-02] MEDS: AMINO AC/ELECTROLYTE/DEX/CALC 1,000 ML IV SCH ×2 (01:32→16:13)
[2021-08-02 05:53] VITALS: BP 141/87
[2021-08-02 06:19] LABS: HEMOGLOBIN 12.2 g/dl (12.0-15.5); MEAN CORPUSCULAR HEMOGLOBIN 33.3 pg (27.0-33.0); MEAN CORPUSCULAR HGB CONC 33.9 g/dl (32.0-36.5); MEAN CORPUSCULAR VOLUME 98.4 fl (80.0-96.0); PLATELET COUNT, AUTOMATED 239 10^3/uL (150-450); RED BLOOD COUNT 3.66 10^6/uL (4.00-5.40); WHITE BLOOD COUNT 5.2 10^3/uL (4.0-10.0)
[2021-08-02 06:42] LABS: BLOOD UREA NITROGEN 11 MG/DL (7-18); CALCIUM LEVEL 8.7 MG/DL (8.8-10.2); CARBON DIOXIDE LEVEL 23 MEQ/L (21-32); CHLORIDE LEVEL 106 MEQ/L (98-107); CREATININE FOR GFR 0.47 MG/DL (0.55-1.30); GLOMERULAR FILTRATION RATE > 60.0 (>45); GLUCOSE, FASTING 113 MG/DL (70-100); POTASSIUM SERUM 3.7 MEQ/L (3.5-5.1); SODIUM LEVEL 138 MEQ/L (136-145)
[2021-08-02] MEDS: BISACODYL 10 MG SUPP PR SCH (09:47)
[2021-08-02] MEDS: NICOTINE 14 MG/24 HR TRANSDERMAL TD SCH (09:48)
[2021-08-02] MEDS ORDERED: KETOROLAC 30 MG/ML 1ML VIAL IV ONE (10:00)
[2021-08-02 14:00] VITALS: BP 110/74
[2021-08-02] MEDS ORDERED: FAT EMULSION IV 20% 500 ML IV SCH (18:00)
[2021-08-02] MEDS: PANTOPRAZOLE 40MG VIAL (C9113 PER 1) IV SCH (18:29)
[2021-08-02 19:27] VITALS: BP 119/90
[2021-08-03] MEDS: AMINO AC/ELECTROLYTE/DEX/CALC 1,000 ML IV SCH ×2 (04:58→18:04)
[2021-08-03 06:00] VITALS: BP 115/83
[2021-08-03 06:16] LABS: HEMATOCRIT 36.4 % (36.0-47.0); HEMOGLOBIN 12.4 g/dl (12.0-15.5); MEAN CORPUSCULAR HGB CONC 34.1 g/dl (32.0-36.5); MEAN CORPUSCULAR VOLUME 96.8 fl (80.0-96.0); PLATELET COUNT, AUTOMATED 247 10^3/uL (150-450); RED BLOOD COUNT 3.76 10^6/uL (4.00-5.40); WHITE BLOOD COUNT 5.7 10^3/uL (4.0-10.0)
[2021-08-03 06:45] LABS: BLOOD UREA NITROGEN 10 MG/DL (7-18); CALCIUM LEVEL 8.8 MG/DL (8.8-10.2); CARBON DIOXIDE LEVEL 24 MEQ/L (21-32); CHLORIDE LEVEL 105 MEQ/L (98-107); CREATININE FOR GFR 0.48 MG/DL (0.55-1.30); GLOMERULAR FILTRATION RATE > 60.0 (>45); GLUCOSE, FASTING 123 MG/DL (70-100); SODIUM LEVEL 135 MEQ/L (136-145)
[2021-08-03] MEDS ORDERED: ceFAZolin SOD 2 GM in IV 1 EA IV ONE (07:45)
[2021-08-03] MEDS ORDERED: NS 1,000 ML IV SCH (07:45)
[2021-08-03] MEDS ORDERED: diphenhydrAMINE 50MG/ML VIAL (J1200) ONE (07:49)
[2021-08-03] MEDS ORDERED: ceFAZolin 2 GM/D5W 50 ML IV BAG (J0690 PER 500MG) ONE (07:49)
[2021-08-03] MEDS ORDERED: fentaNYL 100 MCG/2 ML INJECTION (J3010) ONE (07:49)
[2021-08-03] MEDS ORDERED: MIDAZOLAM INJ 2MG/2ML VIAL (J2250 PER 1MG) ONE (07:50)
[2021-08-03] MEDS ORDERED: ISOVUE-300 61% 50ML VIAL ONE (07:50)
[2021-08-03] MEDS ORDERED: LIDOCAINE 1% MDV 20ML VIAL ONE (07:50)
[2021-08-03] MEDS ORDERED: GLUCAGON INJ 1MG VIAL As Ordered ONE (08:30)
[2021-08-03] MEDS ORDERED: LIDOCAINE 2% JELLY 5ML TUBE As Ordered ONE (08:32)
[2021-08-03] MEDS: BISACODYL 10 MG SUPP PR SCH ×2 (09:00→11:43)
[2021-08-03 10:00] VITALS: BP 122/83
[2021-08-03] MEDS ORDERED: ACETAMINOPHEN TAB 650MG DOSE (2X325MG) PO PRN (10:25)
[2021-08-03] MEDS ORDERED: PERCOCET 5MG/325MG TAB PO PRN (10:25)
[2021-08-03] MEDS: NICOTINE 14 MG/24 HR TRANSDERMAL TD SCH (11:32)
[2021-08-03] MEDS: MORPHINE 2 MG/ML 1ML VIAL (J2270) IV PRN ×3 (11:45→17:40)
[2021-08-03 14:00] VITALS: BP 125/86
[2021-08-03] MEDS ORDERED: FAT EMULSION IV 20% 500 ML IV SCH (18:00)
[2021-08-03] MEDS: PANTOPRAZOLE 40MG VIAL (C9113 PER 1) IV SCH (18:08)
[2021-08-03 22:00] VITALS: BP 126/77
[2021-08-04 06:00] VITALS: BP 122/76
[2021-08-04 06:43] LABS: HEMATOCRIT 35.2 % (36.0-47.0); HEMOGLOBIN 12.1 g/dl (12.0-15.5); MEAN CORPUSCULAR HEMOGLOBIN 33.6 pg (27.0-33.0); MEAN CORPUSCULAR HGB CONC 34.4 g/dl (32.0-36.5); MEAN CORPUSCULAR VOLUME 97.8 fl (80.0-96.0); PLATELET COUNT, AUTOMATED 208 10^3/uL (150-450); WHITE BLOOD COUNT 6.2 10^3/uL (4.0-10.0)
[2021-08-04] MEDS: AMINO AC/ELECTROLYTE/DEX/CALC 1,000 ML IV SCH (07:04)
[2021-08-04 07:18] LABS: ALBUMIN 2.6 GM/DL (3.2-5.2); ALT/SGPT 22 U/L (12-78); BILIRUBIN,TOTAL 0.7 MG/DL (0.2-1.0); BLOOD UREA NITROGEN 11 MG/DL (7-18); CALCIUM LEVEL 8.7 MG/DL (8.8-10.2); CARBON DIOXIDE LEVEL 22 MEQ/L (21-32); CHLORIDE LEVEL 102 MEQ/L (98-107); GLOMERULAR FILTRATION RATE > 60.0 (>45); GLUCOSE, FASTING 121 MG/DL (70-100); POTASSIUM SERUM 4.5 MEQ/L (3.5-5.1); SODIUM LEVEL 133 MEQ/L (136-145); TOTAL PROTEIN 6.9 GM/DL (6.4-8.2)
[2021-08-04] MEDS: BISACODYL 10 MG SUPP PR SCH (09:00)
[2021-08-04] MEDS: DOCUSATE SOD LIQ 100MG/10ML UDC GT SCH (12:32)
[2021-08-04] MEDS: NICOTINE 14 MG/24 HR TRANSDERMAL TD SCH (12:35)
[2021-08-04 14:00] VITALS: BP 113/80
[2021-08-04] MEDS ORDERED: MORPHINE 2 MG/ML 1ML VIAL (J2270) IV PRN (14:35)
[2021-08-04] MEDS ORDERED: ACETAMINOPHEN TAB 650MG DOSE (2X325MG) GT PRN (14:35)
[2021-08-04] MEDS: PANTOPRAZOLE 40MG VIAL (C9113 PER 1) IV SCH (18:10)
[2021-08-04] MEDS: LORazepam 1 MG TAB GT PRN (21:29)
[2021-08-04] MEDS: PERCOCET 5MG/325MG TAB GT PRN (21:30)
[2021-08-04 22:00] VITALS: BP 100/60
[2021-08-05 06:30] LABS: HEMATOCRIT 36.3 % (36.0-47.0); HEMOGLOBIN 12.3 g/dl (12.0-15.5); MEAN CORPUSCULAR HGB CONC 33.9 g/dl (32.0-36.5); MEAN CORPUSCULAR VOLUME 97.3 fl (80.0-96.0); PLATELET COUNT, AUTOMATED 224 10^3/uL (150-450); RED BLOOD COUNT 3.73 10^6/uL (4.00-5.40); WHITE BLOOD COUNT 4.9 10^3/uL (4.0-10.0)
[2021-08-05 06:41] VITALS: BP 106/70
[2021-08-05 07:00] LABS: ALBUMIN 2.8 GM/DL (3.2-5.2); ALT/SGPT 23 U/L (12-78); BILIRUBIN,TOTAL 0.8 MG/DL (0.2-1.0); BLOOD UREA NITROGEN 17 MG/DL (7-18); CALCIUM LEVEL 8.8 MG/DL (8.8-10.2); CARBON DIOXIDE LEVEL 27 MEQ/L (21-32); CHLORIDE LEVEL 103 MEQ/L (98-107); CREATININE FOR GFR 0.56 MG/DL (0.55-1.30); GLOMERULAR FILTRATION RATE > 60.0 (>45); GLUCOSE, FASTING 131 MG/DL (70-100); POTASSIUM SERUM 4.2 MEQ/L (3.5-5.1); SODIUM LEVEL 135 MEQ/L (136-145); TOTAL PROTEIN 6.8 GM/DL (6.4-8.2)
[2021-08-05] MEDS: BISACODYL 10 MG SUPP PR SCH (09:00)
[2021-08-05] MEDS: DOCUSATE SOD LIQ 100MG/10ML UDC GT SCH (10:19)
[2021-08-05] MEDS: ENOXAPARIN 40MG/0.4ML SYRINGE (J1650 PER 10MG) SC SCH (10:19)
[2021-08-05] MEDS: NICOTINE 14 MG/24 HR TRANSDERMAL TD SCH (10:21)
[2021-08-05] MEDS: PERCOCET 5MG/325MG TAB GT PRN ×2 (10:24→23:20)
[2021-08-05 14:00] VITALS: BP 103/69
[2021-08-05] MEDS: PANTOPRAZOLE 40MG VIAL (C9113 PER 1) IV SCH (18:04)
[2021-08-05 20:00] VITALS: BP 102/70
[2021-08-05] MEDS ORDERED: SALIVA SUBSTITUTE(MOUTHKOTE) BTL MT PRN (21:40)
[2021-08-06 04:00] VITALS: BP 109/73
[2021-08-06 06:22] LABS: HEMATOCRIT 35.9 % (36.0-47.0); MEAN CORPUSCULAR HEMOGLOBIN 33.1 pg (27.0-33.0); MEAN CORPUSCULAR HGB CONC 33.4 g/dl (32.0-36.5); MEAN CORPUSCULAR VOLUME 98.9 fl (80.0-96.0); PLATELET COUNT, AUTOMATED 228 10^3/uL (150-450); RED BLOOD COUNT 3.63 10^6/uL (4.00-5.40); WHITE BLOOD COUNT 4.6 10^3/uL (4.0-10.0)
[2021-08-06 06:48] LABS: ALBUMIN 2.9 GM/DL (3.2-5.2); ALT/SGPT 22 U/L (12-78); BILIRUBIN,TOTAL 0.6 MG/DL (0.2-1.0); BLOOD UREA NITROGEN 18 MG/DL (7-18); CALCIUM LEVEL 8.6 MG/DL (8.8-10.2); CARBON DIOXIDE LEVEL 27 MEQ/L (21-32); CHLORIDE LEVEL 105 MEQ/L (98-107); CREATININE FOR GFR 0.52 MG/DL (0.55-1.30); GLOMERULAR FILTRATION RATE > 60.0 (>45); GLUCOSE, FASTING 95 MG/DL (70-100); POTASSIUM SERUM 4.3 MEQ/L (3.5-5.1); SODIUM LEVEL 140 MEQ/L (136-145); TOTAL PROTEIN 6.4 GM/DL (6.4-8.2)
[2021-08-06] MEDS: DOCUSATE SOD LIQ 100MG/10ML UDC GT SCH (10:08)
[2021-08-06] MEDS: NICOTINE 14 MG/24 HR TRANSDERMAL TD SCH (10:09)
[2021-08-06] MEDS: ENOXAPARIN 40MG/0.4ML SYRINGE (J1650 PER 10MG) SC SCH (10:09)
[2021-08-06] MEDS: BISACODYL 10 MG SUPP PR SCH (10:10)
[2021-08-06] MEDS: PERCOCET 5MG/325MG TAB GT PRN ×2 (10:39→22:01)
[2021-08-06] MEDS: LORazepam 1 MG TAB GT PRN (10:39)
[2021-08-06 14:00] VITALS: BP 109/73
[2021-08-06] MEDS: PANTOPRAZOLE 40MG VIAL (C9113 PER 1) IV SCH (17:40)
[2021-08-06 22:00] VITALS: BP 111/71
[2021-08-07] MEDS ORDERED: NS 500 ML IV ONE (05:30)
[2021-08-07 06:00] VITALS: BP 88/50
[2021-08-07 06:28] LABS: HEMATOCRIT 34.8 % (36.0-47.0); HEMOGLOBIN 11.3 g/dl (12.0-15.5); MEAN CORPUSCULAR HEMOGLOBIN 32.7 pg (27.0-33.0); MEAN CORPUSCULAR HGB CONC 32.5 g/dl (32.0-36.5); MEAN CORPUSCULAR VOLUME 100.6 fl (80.0-96.0); PLATELET COUNT, AUTOMATED 235 10^3/uL (150-450); RED BLOOD COUNT 3.46 10^6/uL (4.00-5.40)
[2021-08-07 06:33] VITALS: BP 98/60
[2021-08-07 06:45] LABS: BLOOD UREA NITROGEN 18 MG/DL (7-18); CALCIUM LEVEL 8.8 MG/DL (8.8-10.2); CARBON DIOXIDE LEVEL 30 MEQ/L (21-32); CHLORIDE LEVEL 105 MEQ/L (98-107); GLOMERULAR FILTRATION RATE > 60.0 (>45); GLUCOSE, FASTING 125 MG/DL (70-100); POTASSIUM SERUM 4.5 MEQ/L (3.5-5.1); SODIUM LEVEL 140 MEQ/L (136-145)
[2021-08-07] MEDS: BISACODYL 10 MG SUPP PR SCH (09:00)
[2021-08-07] MEDS: DOCUSATE SOD LIQ 100MG/10ML UDC GT SCH (09:38)
[2021-08-07] MEDS: ENOXAPARIN 40MG/0.4ML SYRINGE (J1650 PER 10MG) SC SCH (09:38)
[2021-08-07] MEDS: NICOTINE 14 MG/24 HR TRANSDERMAL TD SCH (09:39)
[2021-08-07 14:00] VITALS: BP 100/70
[2021-08-07] MEDS: PANTOPRAZOLE 40MG VIAL (C9113 PER 1) IV SCH (18:06)
[2021-08-07 22:00] VITALS: BP 106/71
[2021-08-07] MEDS: PERCOCET 5MG/325MG TAB GT PRN (22:59)
[2021-08-08 06:00] VITALS: BP 103/70
[2021-08-08 06:13] LABS: HEMATOCRIT 34.9 % (36.0-47.0); HEMOGLOBIN 11.3 g/dl (12.0-15.5); MEAN CORPUSCULAR HEMOGLOBIN 32.3 pg (27.0-33.0); MEAN CORPUSCULAR HGB CONC 32.4 g/dl (32.0-36.5); MEAN CORPUSCULAR VOLUME 99.7 fl (80.0-96.0); PLATELET COUNT, AUTOMATED 225 10^3/uL (150-450); WHITE BLOOD COUNT 5.9 10^3/uL (4.0-10.0)
[2021-08-08 06:29] LABS: BLOOD UREA NITROGEN 17 MG/DL (7-18); CALCIUM LEVEL 8.7 MG/DL (8.8-10.2); CARBON DIOXIDE LEVEL 27 MEQ/L (21-32); CHLORIDE LEVEL 108 MEQ/L (98-107); CREATININE FOR GFR 0.47 MG/DL (0.55-1.30); GLOMERULAR FILTRATION RATE > 60.0 (>45); GLUCOSE, FASTING 127 MG/DL (70-100); POTASSIUM SERUM 3.8 MEQ/L (3.5-5.1); SODIUM LEVEL 141 MEQ/L (136-145)
[2021-08-08] MEDS: ENOXAPARIN 40MG/0.4ML SYRINGE (J1650 PER 10MG) SC SCH (08:44)
[2021-08-08] MEDS: NICOTINE 14 MG/24 HR TRANSDERMAL TD SCH (08:44)
[2021-08-08] MEDS: BISACODYL 10 MG SUPP PR SCH (08:44)
[2021-08-08] MEDS: DOCUSATE SOD LIQ 100MG/10ML UDC GT SCH (08:44)
[2021-08-08 14:00] VITALS: BP 100/67
[2021-08-08] MEDS: PANTOPRAZOLE 40MG VIAL (C9113 PER 1) IV SCH (17:24)
[2021-08-08 17:56] VITALS: BP 126/75
[2021-08-08 20:00] VITALS: BP 105/64
[2021-08-09 04:00] VITALS: BP 100/60
[2021-08-09 07:03] LABS: HEMATOCRIT 35.5 % (36.0-47.0); HEMOGLOBIN 11.7 g/dl (12.0-15.5); MEAN CORPUSCULAR HEMOGLOBIN 32.6 pg (27.0-33.0); MEAN CORPUSCULAR VOLUME 98.9 fl (80.0-96.0); PLATELET COUNT, AUTOMATED 239 10^3/uL (150-450); RED BLOOD COUNT 3.59 10^6/uL (4.00-5.40); WHITE BLOOD COUNT 5.4 10^3/uL (4.0-10.0)
[2021-08-09 07:30] LABS: BLOOD UREA NITROGEN 16 MG/DL (7-18); CALCIUM LEVEL 8.8 MG/DL (8.8-10.2); CARBON DIOXIDE LEVEL 26 MEQ/L (21-32); CHLORIDE LEVEL 107 MEQ/L (98-107); CREATININE FOR GFR 0.46 MG/DL (0.55-1.30); GLOMERULAR FILTRATION RATE > 60.0 (>45); GLUCOSE, FASTING 125 MG/DL (70-100); POTASSIUM SERUM 3.8 MEQ/L (3.5-5.1); SODIUM LEVEL 139 MEQ/L (136-145)
[2021-08-09] MEDS: DOCUSATE SOD LIQ 100MG/10ML UDC GT SCH (09:00)
[2021-08-09] MEDS: ENOXAPARIN 40MG/0.4ML SYRINGE (J1650 PER 10MG) SC SCH ×2 (10:29→20:37)
[2021-08-09] MEDS: BISACODYL 10 MG SUPP PR SCH (10:29)
[2021-08-09] MEDS: NICOTINE 14 MG/24 HR TRANSDERMAL TD SCH (14:17)
[2021-08-09] MEDS: LORazepam 1 MG TAB GT PRN ×2 (14:17→22:22)
[2021-08-09] MEDS: PERCOCET 5MG/325MG TAB GT PRN ×2 (14:18→22:22)
[2021-08-09] MEDS ORDERED: SODIUM CHLORIDE 0.9% INJ 10 ML SYR IV ONE (16:00)
[2021-08-09] MEDS: PANTOPRAZOLE 40MG VIAL (C9113 PER 1) IV SCH (18:15)
[2021-08-09 20:00] VITALS: BP 100/59
[2021-08-10 04:00] VITALS: BP 112/66
[2021-08-10 08:19] LABS: HEMATOCRIT 34.7 % (36.0-47.0); HEMOGLOBIN 11.4 g/dl (12.0-15.5); MEAN CORPUSCULAR HEMOGLOBIN 32.4 pg (27.0-33.0); MEAN CORPUSCULAR HGB CONC 32.9 g/dl (32.0-36.5); MEAN CORPUSCULAR VOLUME 98.6 fl (80.0-96.0); PLATELET COUNT, AUTOMATED 234 10^3/uL (150-450); RED BLOOD COUNT 3.52 10^6/uL (4.00-5.40); WHITE BLOOD COUNT 5.4 10^3/uL (4.0-10.0)
[2021-08-10 08:52] LABS: BLOOD UREA NITROGEN 19 MG/DL (7-18); CALCIUM LEVEL 8.9 MG/DL (8.8-10.2); CARBON DIOXIDE LEVEL 26 MEQ/L (21-32); CHLORIDE LEVEL 105 MEQ/L (98-107); CREATININE FOR GFR 0.47 MG/DL (0.55-1.30); GLOMERULAR FILTRATION RATE > 60.0 (>45); GLUCOSE, FASTING 103 MG/DL (70-100); POTASSIUM SERUM 4.2 MEQ/L (3.5-5.1); SODIUM LEVEL 139 MEQ/L (136-145)
[2021-08-10] MEDS: DOCUSATE SOD LIQ 100MG/10ML UDC GT SCH (10:05)
[2021-08-10] MEDS: ENOXAPARIN 40MG/0.4ML SYRINGE (J1650 PER 10MG) SC SCH ×2 (10:05→20:32)
[2021-08-10] MEDS: NICOTINE 14 MG/24 HR TRANSDERMAL TD SCH (10:06)
[2021-08-10] MEDS: BISACODYL 10 MG SUPP PR SCH (10:06)
[2021-08-10] MEDS: PERCOCET 5MG/325MG TAB GT PRN ×2 (10:08→18:13)
[2021-08-10 14:37] VITALS: BP 90/54
[2021-08-10] MEDS ORDERED: SODIUM CHLORIDE 0.9% INJ 10 ML SYR IV SCH (16:00)
[2021-08-10] MEDS: PANTOPRAZOLE 40MG VIAL (C9113 PER 1) IV SCH (17:50)
[2021-08-10] MEDS: LORazepam 1 MG TAB GT PRN (18:13)
[2021-08-10 20:00] VITALS: BP 125/73
[2021-08-11] MEDS ORDERED: DOCU10ELUD GT (07:36)
[2021-08-11 07:49] LABS: HEMATOCRIT 32.4 % (36.0-47.0); HEMOGLOBIN 10.9 g/dl (12.0-15.5); MEAN CORPUSCULAR HEMOGLOBIN 33.1 pg (27.0-33.0); MEAN CORPUSCULAR HGB CONC 33.6 g/dl (32.0-36.5); MEAN CORPUSCULAR VOLUME 98.5 fl (80.0-96.0); PLATELET COUNT, AUTOMATED 221 10^3/uL (150-450); RED BLOOD COUNT 3.29 10^6/uL (4.00-5.40); WHITE BLOOD COUNT 4.4 10^3/uL (4.0-10.0)
[2021-08-11 08:10] LABS: BLOOD UREA NITROGEN 17 MG/DL (7-18); CALCIUM LEVEL 8.8 MG/DL (8.8-10.2); CARBON DIOXIDE LEVEL 27 MEQ/L (21-32); CHLORIDE LEVEL 105 MEQ/L (98-107); CREATININE FOR GFR 0.42 MG/DL (0.55-1.30); GLOMERULAR FILTRATION RATE > 60.0 (>45); GLUCOSE, FASTING 96 MG/DL (70-100); POTASSIUM SERUM 3.8 MEQ/L (3.5-5.1); SODIUM LEVEL 137 MEQ/L (136-145)
[2021-08-11] MEDS: NICOTINE 14 MG/24 HR TRANSDERMAL TD SCH (09:36)
[2021-08-11] MEDS: PERCOCET 5MG/325MG TAB GT PRN ×2 (09:36→15:09)
[2021-08-11] MEDS: ENOXAPARIN 40MG/0.4ML SYRINGE (J1650 PER 10MG) SC SCH (09:36)
[2021-08-11] MEDS: DOCUSATE SOD LIQ 100MG/10ML UDC GT SCH (09:36)
[2021-08-11] MEDS: BISACODYL 10 MG SUPP PR SCH (09:37)
[2021-08-11] MEDS ORDERED: OMEP-173 PO (15:06)
== END 2021-08-11 18:15 | disposition home health service (06) | DRG 222 ==
LOC: M ED 13:56 → M ED INP 15:53 → M MSPAV 21:40 → M 4MAIN 08-08 17:40
PROVIDERS: ADMIT Internal Medicine; ATTEND Internal Medicine
PROC: 0DH67UZ Insertion of Feeding Device into Stomach, Via Natural or Artificial Opening (ICD-10-PCS; 2021-08-03)
PROC: BD11ZZZ Fluoroscopy of Esophagus (ICD-10-PCS; 2021-08-03)
PROC: XW033E5 Introduction of Remdesivir Anti-infective into Peripheral Vein, Percutaneous Approach, New Technology Group 5 (ICD-10-PCS; principal; 2021-08-09)
DX: R13.10 Dysphagia, unspecified (principal); C15.9 Malignant neoplasm of esophagus, unspecified; E86.0 Dehydration; Z85.3 Personal history of malignant neoplasm of breast; Z92.21 Personal history of antineoplastic chemotherapy; Z92.3 Personal history of irradiation; I10 Essential (primary) hypertension; E78.5 Hyperlipidemia, unspecified; F10.10 Alcohol abuse, uncomplicated; F17.210 Nicotine dependence, cigarettes, uncomplicated; F41.9 Anxiety disorder, unspecified; F32.A Depression, unspecified; M54.9 Dorsalgia, unspecified; K21.9 Gastro-esophageal reflux disease without esophagitis; Z79.899 Other long term (current) drug therapy; Z91.040 Latex allergy status; Z91.030 Bee allergy status; E87.6 Hypokalemia; U07.1 COVID-19

== ENCOUNTER → 2021-08-29 | Outpatient (RCR) | payer OTHER ==
[~2021-08-29] MED LIST changes: +ATIV2TAB PO; +DOCU10ELUD GT; +LEVO500T4 PO; +NICO1DIS7 TOP; +NICO7DIS30 TD; +ONDA8TAB8 PO; +PROC10TA5 PO
== END ==
LOC: M ONCR 08-02 13:00
PROVIDERS: ATTEND General Practice
DX: C15.4 Malignant neoplasm of middle third of esophagus (principal)

== ENCOUNTER 2021-09-16 16:10 | Inpatient (IN) | payer OTHER ==
[~2021-09-16] VITALS: Ht 182.9 cm; Wt 68.3 kg
[2021-09-16] MEDS ORDERED: NS 2,080 ML in IV 1 EA IV ONE (17:10)
[2021-09-16 17:41] LABS: BASO % 0.5 % (0.0-1.0); EOS # 0.1 10^3/uL (0.0-0.5); EOS % 1.6 % (0.0-3.0); HEMATOCRIT 26.9 % (36.0-47.0); HEMOGLOBIN 9.2 g/dl (12.0-15.5); LYMPH # 1.2 10^3/uL (1.5-5.0); MEAN CORPUSCULAR HEMOGLOBIN 32.2 pg (27.0-33.0); MEAN CORPUSCULAR HGB CONC 34.2 g/dl (32.0-36.5); MEAN CORPUSCULAR VOLUME 94.1 fl (80.0-96.0); MONO # 0.3 10^3/uL (0.0-0.8); NEUTROPHILS # 2.8 10^3/uL (1.5-8.5); NEUTROPHILS % 63.4 % (36.0-66.0); PLATELET COUNT, AUTOMATED 135 10^3/uL (150-450); RED BLOOD COUNT 2.86 10^6/uL (4.00-5.40); WHITE BLOOD COUNT 4.4 10^3/uL (4.0-10.0)
[2021-09-16 18:06] LABS: CK-MB VALUE MASS < 1.0 NG/ML (<3.6); CPK CREATINE PHOSPHOKINASE 14 U/L (26-192); MB/CK RELATIVE INDEX 7.14 (< OR =4)
[2021-09-16 18:13] LABS: ALBUMIN 2.4 GM/DL (3.2-5.2); ALT/SGPT 19 U/L (12-78); AMYLASE 32 U/L (25-115); BILIRUBIN,TOTAL 1.1 MG/DL (0.2-1.0); BLOOD UREA NITROGEN 12 MG/DL (7-18); CALCIUM LEVEL 8.1 MG/DL (8.8-10.2); CARBON DIOXIDE LEVEL 34 MEQ/L (21-32); CHLORIDE LEVEL 87 MEQ/L (98-107); CREATININE FOR GFR 0.54 MG/DL (0.55-1.30); GLOMERULAR FILTRATION RATE > 60.0 (>45); GLUCOSE, FASTING 110 MG/DL (70-100); POTASSIUM SERUM 2.9 MEQ/L (3.5-5.1); SODIUM LEVEL 130 MEQ/L (136-145); TOTAL PROTEIN 6.2 GM/DL (6.4-8.2)
[2021-09-16] MEDS ORDERED: NS 1,000 ML IV ONE (18:30)
[2021-09-16] MEDS ORDERED: KCL 10MEQ/100ML SWI (KRUN) 10 MEQ in IV 1 EA IV ONE (18:30)
[2021-09-16] MEDS ORDERED: cefTRIAXone SOD 2 GM in D5W MINI-BAG PLUS 50 ML IV ONE (18:30)
[2021-09-16] MEDS ORDERED: IPRATROPIUM 0.5MG/ALBUTEROL 2.5MG INH SOL UD 3ML (DUONEB) NEB ONE (18:45)
[2021-09-16] MEDS ORDERED: methylPREDNISolone 125MG 2ML VIAL IV ONE (18:45)
[2021-09-16] MEDS ORDERED: ALBUTEROL SULFATE 2.5 MG/0.5 ML INH NEB SOLN INH ONE (18:45)
[2021-09-16 18:56] LABS: MAGNESIUM LEVEL 1.8 MG/DL (1.8-2.4)
[2021-09-16 19:06] LABS: ABG BASE EXCESS 8.5 (-2.0-2.0); ABG O2 SATURATION 99.3 % (95.0-99.0); ABG PARTIAL PRESSURE CO2 34.5 mmHg (35.0-45.0); ABG PARTIAL PRESSURE O2 214.2 mmHg (75.0-100.0); ABG STANDARD HCO3 32.3 MEQ/L (22.0-26.0); ABG TOTAL CO2 32.1 MEQ/L (23.0-31.0); ABG pH (ARTERIAL) 7.572 UNITS (7.350-7.450)
[2021-09-16] MEDS ORDERED: LORA2TA PO (19:47)
[2021-09-16] MEDS ORDERED: OMEP-173 PO (19:47)
[2021-09-16] MEDS ORDERED: DOCU5LIQ GT (19:48)
[2021-09-16] MEDS ORDERED: HOME MED LIST COMPLETE! XX SCH (19:50)
[2021-09-16 23:07] VITALS: BP 96/66
[2021-09-16] MEDS ORDERED: ALBUTEROL 90 MCG/ACT 8GM HFA INHALER INH PRN (23:50)
[2021-09-17] MEDS: HEPARIN SOD (PORCINE) 5000UNITS/ML 1ML VIAL/SYRINGE SC SCH ×4 (00:11→20:46)
[2021-09-17] MEDS: AZITHROMYCIN INJ 500 MG, VIAL MATE ADAPTER 1 EACH in NS 250 ML IV SCH ×2 (00:22→23:49)
[2021-09-17] MEDS: NS 1,000 ML IV SCH ×5 (00:23→19:55)
[2021-09-17] MEDS ORDERED: DEXTROMETHORPHAN 60MG/10ML SUSP 90ML BTL(DELSYM) PEG PRN (00:50)
[2021-09-17] MEDS ORDERED: POTASSIUM CHLORIDE 10% LIQ 20 MEQ/15 ML UDC PO ONE (01:05)
[2021-09-17 05:20] VITALS: BP 90/68
[2021-09-17] MEDS ORDERED: NS 1,000 ML IV ONE (05:55)
[2021-09-17 07:15] VITALS: BP 88/52
[2021-09-17 07:15] LABS: HEMOGLOBIN 7.9 g/dl (12.0-15.5); LYMPH # 0.6 10^3/uL (1.5-5.0); LYMPH % 23.7 % (24.0-44.0); MEAN CORPUSCULAR HEMOGLOBIN 32.1 pg (27.0-33.0); MEAN CORPUSCULAR HGB CONC 32.9 g/dl (32.0-36.5); MEAN CORPUSCULAR VOLUME 97.6 fl (80.0-96.0); MONO # 0.1 10^3/uL (0.0-0.8); MONO % 2.8 % (2.0-8.0); NEUTROPHILS # 1.8 10^3/uL (1.5-8.5); NEUTROPHILS % 72.7 % (36.0-66.0); PLATELET COUNT, AUTOMATED 115 10^3/uL (150-450); RED BLOOD COUNT 2.46 10^6/uL (4.00-5.40); WHITE BLOOD COUNT 2.5 10^3/uL (4.0-10.0)
[2021-09-17 07:31] LABS: BLOOD UREA NITROGEN 11 MG/DL (7-18); CALCIUM LEVEL 7.5 MG/DL (8.8-10.2); CARBON DIOXIDE LEVEL 29 MEQ/L (21-32); CHLORIDE LEVEL 97 MEQ/L (98-107); CREATININE FOR GFR 0.46 MG/DL (0.55-1.30); GLOMERULAR FILTRATION RATE > 60.0 (>45); GLUCOSE, FASTING 147 MG/DL (70-100); POTASSIUM SERUM 3.3 MEQ/L (3.5-5.1); SODIUM LEVEL 135 MEQ/L (136-145)
[2021-09-17] MEDS: MIDODRINE 5 MG TAB PO SCH ×3 (07:49→15:58)
[2021-09-17] MEDS: LACTOBACILLUS ACIDOPHILUS CAP (BACID) PO SCH ×4 (09:00→20:46)
[2021-09-17] MEDS ORDERED: PIPERACILLIN/TAZOBACTAM SOD 4.5 GM in D5W MINI-BAG PLUS 50 ML IV SCH (09:00)
[2021-09-17 09:17] VITALS: BP 100/69
[2021-09-17] MEDS: VANCOMYCIN HCL 1,000 MG, VIAL MATE ADAPTER 1 EACH in NS 250 ML IV SCH ×2 (09:42→22:34)
[2021-09-17] MEDS ORDERED: KCL 40MEQ in NS 1000ML 1,000 ML IV ONE (10:00)
[2021-09-17] MEDS ORDERED: POTASSIUM CHLORIDE 10MEQ SR TABLET PO ONE (10:00)
[2021-09-17] MEDS ORDERED: VANCOMYCIN HCL 500 MG in D5W MINI-BAG PLUS 100 ML IV ONE (11:00)
[2021-09-17] MEDS: PIPERACILLIN/TAZOBACTAM SOD 4.5 GM in D5W MINI-BAG PLUS 50 ML IV SCH ×2 (12:24→20:45)
[2021-09-17 12:27] VITALS: BP 97/68
[2021-09-17 14:00] VITALS: BP 95/62
[2021-09-17] MEDS ORDERED: cefTRIAXone SOD 1 GM in D5W MINI-BAG PLUS 50 ML IV SCH (18:00)
[2021-09-17 21:03] VITALS: BP 110/78
[2021-09-18] VITALS (9 sets, daily range): BP systolic 90–120; BP diastolic 53–75
[2021-09-18] MEDS: PIPERACILLIN/TAZOBACTAM SOD 4.5 GM in D5W MINI-BAG PLUS 50 ML IV SCH ×3 (05:08→21:22)
[2021-09-18] MEDS: HEPARIN SOD (PORCINE) 5000UNITS/ML 1ML VIAL/SYRINGE SC SCH ×3 (05:08→21:22)
[2021-09-18] MEDS: NS 1,000 ML IV SCH ×2 (05:10→15:55)
[2021-09-18 06:51] LABS: BASO % 0.3 % (0.0-1.0); EOS # 0.1 10^3/uL (0.0-0.5); EOS % 1.7 % (0.0-3.0); HEMATOCRIT 23.8 % (36.0-47.0); HEMOGLOBIN 7.5 g/dl (12.0-15.5); LYMPH # 0.4 10^3/uL (1.5-5.0); LYMPH % 13.5 % (24.0-44.0); MEAN CORPUSCULAR HEMOGLOBIN 32.1 pg (27.0-33.0); MEAN CORPUSCULAR HGB CONC 31.5 g/dl (32.0-36.5); MEAN CORPUSCULAR VOLUME 101.7 fl (80.0-96.0); MONO # 0.2 10^3/uL (0.0-0.8); NEUTROPHILS # 2.4 10^3/uL (1.5-8.5); NEUTROPHILS % 79.2 % (36.0-66.0); PLATELET COUNT, AUTOMATED 121 10^3/uL (150-450); RED BLOOD COUNT 2.34 10^6/uL (4.00-5.40)
[2021-09-18 07:18] LABS: BLOOD UREA NITROGEN 10 MG/DL (7-18); CALCIUM LEVEL 7.5 MG/DL (8.8-10.2); CARBON DIOXIDE LEVEL 26 MEQ/L (21-32); CHLORIDE LEVEL 108 MEQ/L (98-107); CREATININE FOR GFR 0.34 MG/DL (0.55-1.30); GLOMERULAR FILTRATION RATE > 60.0 (>45); GLUCOSE, FASTING 87 MG/DL (70-100); POTASSIUM SERUM 3.5 MEQ/L (3.5-5.1); SODIUM LEVEL 141 MEQ/L (136-145)
[2021-09-18] MEDS: VANCOMYCIN HCL 1,000 MG, VIAL MATE ADAPTER 1 EACH in NS 250 ML IV SCH ×3 (09:31→23:08)
[2021-09-18] MEDS: MIDODRINE 5 MG TAB PO SCH ×3 (09:31→17:21)
[2021-09-18] MEDS: LACTOBACILLUS ACIDOPHILUS CAP (BACID) PO SCH ×4 (09:31→21:22)
[2021-09-18 10:14] LABS: HEMATOCRIT 25.3 % (36.0-47.0); HEMOGLOBIN 7.8 g/dl (12.0-15.5)
[2021-09-19] MEDS: AZITHROMYCIN INJ 500 MG, VIAL MATE ADAPTER 1 EACH in NS 250 ML IV SCH (00:53)
[2021-09-19] MEDS: NS 1,000 ML IV SCH (00:54)
[2021-09-19] MEDS: PIPERACILLIN/TAZOBACTAM SOD 4.5 GM in D5W MINI-BAG PLUS 50 ML IV SCH (05:17)
[2021-09-19] MEDS: HEPARIN SOD (PORCINE) 5000UNITS/ML 1ML VIAL/SYRINGE SC SCH ×3 (05:18→20:35)
[2021-09-19 06:00] VITALS: BP 108/72
[2021-09-19 06:52] LABS: BASO % 0.4 % (0.0-1.0); EOS # 0.1 10^3/uL (0.0-0.5); EOS % 3.7 % (0.0-3.0); HEMATOCRIT 25.6 % (36.0-47.0); HEMOGLOBIN 8.4 g/dl (12.0-15.5); LYMPH # 0.6 10^3/uL (1.5-5.0); LYMPH % 25.3 % (24.0-44.0); MEAN CORPUSCULAR HEMOGLOBIN 31.8 pg (27.0-33.0); MEAN CORPUSCULAR HGB CONC 32.8 g/dl (32.0-36.5); MONO # 0.2 10^3/uL (0.0-0.8); MONO % 6.2 % (2.0-8.0); NEUTROPHILS # 1.5 10^3/uL (1.5-8.5); NEUTROPHILS % 63.6 % (36.0-66.0); PLATELET COUNT, AUTOMATED 117 10^3/uL (150-450); RED BLOOD COUNT 2.64 10^6/uL (4.00-5.40); WHITE BLOOD COUNT 2.4 10^3/uL (4.0-10.0)
[2021-09-19 07:21] LABS: BLOOD UREA NITROGEN 5 MG/DL (7-18); CALCIUM LEVEL 7.4 MG/DL (8.8-10.2); CARBON DIOXIDE LEVEL 25 MEQ/L (21-32); CHLORIDE LEVEL 107 MEQ/L (98-107); CREATININE FOR GFR 0.37 MG/DL (0.55-1.30); GLOMERULAR FILTRATION RATE > 60.0 (>45); GLUCOSE, FASTING 85 MG/DL (70-100); POTASSIUM SERUM 3.3 MEQ/L (3.5-5.1); SODIUM LEVEL 139 MEQ/L (136-145)
[2021-09-19 08:03] VITALS: BP 98/63
[2021-09-19] MEDS: MIDODRINE 5 MG TAB PO SCH ×3 (08:03→17:30)
[2021-09-19] MEDS: LACTOBACILLUS ACIDOPHILUS CAP (BACID) PO SCH ×4 (08:03→21:00)
[2021-09-19] MEDS ORDERED: CYCLOBENZAPRINE 10MG TABLET PO PRN (08:20)
[2021-09-19] MEDS ORDERED: traMADol 50 MG TAB PO PRN (08:20)
[2021-09-19] MEDS ORDERED: LORazepam 2 MG TAB PO PRN (08:20)
[2021-09-19] MEDS ORDERED: DIFL50TA PO (08:53)
[2021-09-19] MEDS ORDERED: RISATAB3 PO (08:53)
[2021-09-19] MEDS ORDERED: MOXI400T11 PO (08:53)
[2021-09-19] MEDS ORDERED: MIDO5TA PO (08:53)
[2021-09-19] MEDS ORDERED: MOXIFLOXACIN 400 MG TAB PO SCH (09:00)
[2021-09-19] MEDS ORDERED: FLUCONAZOLE 50MG TABLET PO SCH (09:00)
[2021-09-19] MEDS ORDERED: OMEPRAZOLE 20MG CAP PO SCH (09:00)
[2021-09-19 09:33] LABS: C REACTIVE PROTEIN QUANTITATIV 2.44 MG/DL (0.00-0.30)
[2021-09-19 10:00] VITALS: BP_SYST 103; BP_SYST 88; BP_SYST 98; BP_DIAS 63; BP_DIAS 67
[2021-09-19] MEDS ORDERED: BACTRIM 160MG/800MG DS TAB PO SCH (10:30)
[2021-09-19 10:51] LABS: ERYTHROCYTE SEDIMENTATION RATE 65 mm/hr (0-30)
[2021-09-19] MEDS: KCL 40MEQ in NS 1000ML 1,000 ML IV SCH ×4 (11:10→20:35)
[2021-09-19] MEDS: KCL 10MEQ/100ML SWI (KRUN) 10 MEQ in IV 1 EA IV SCH ×3 (11:10→14:35)
[2021-09-19 14:00] VITALS: BP 91/57
[2021-09-19] MEDS ORDERED: KCL 10MEQ/100ML SWI (KRUN) 10 MEQ in IV 1 EA IV SCH (14:30)
[2021-09-19] MEDS: BACTRIM SUSP 160MG/800MG PER 20ML ORAL SYRINGE PEG SCH (20:35)
[2021-09-19 22:00] VITALS: BP 144/84
[2021-09-20] MEDS: KCL 40MEQ in NS 1000ML 1,000 ML IV SCH ×2 (00:20→05:54)
[2021-09-20] MEDS: HEPARIN SOD (PORCINE) 5000UNITS/ML 1ML VIAL/SYRINGE SC SCH ×3 (05:53→22:10)
[2021-09-20 07:41] VITALS: BP 78/48
[2021-09-20] MEDS: BACTRIM SUSP 160MG/800MG PER 20ML ORAL SYRINGE PEG SCH ×2 (08:31→22:11)
[2021-09-20] MEDS: LACTOBACILLUS ACIDOPHILUS CAP (BACID) PO SCH ×4 (08:31→20:30)
[2021-09-20] MEDS: MIDODRINE 5 MG TAB PO SCH ×3 (08:31→16:11)
[2021-09-20 08:35] LABS: HEMATOCRIT 29.1 % (36.0-47.0); HEMOGLOBIN 9.5 g/dl (12.0-15.5); MEAN CORPUSCULAR HEMOGLOBIN 31.8 pg (27.0-33.0); MEAN CORPUSCULAR HGB CONC 32.6 g/dl (32.0-36.5); MEAN CORPUSCULAR VOLUME 97.3 fl (80.0-96.0); PLATELET COUNT, AUTOMATED 133 10^3/uL (150-450); RED BLOOD COUNT 2.99 10^6/uL (4.00-5.40); WHITE BLOOD COUNT 2.7 10^3/uL (4.0-10.0)
[2021-09-20 09:05] LABS: ATYPICAL LYMPH 4 % (0-5); BLOOD UREA NITROGEN 5 MG/DL (7-18); CARBON DIOXIDE LEVEL 20 MEQ/L (21-32); CHLORIDE LEVEL 111 MEQ/L (98-107); CREATININE FOR GFR 0.38 MG/DL (0.55-1.30); EOSINOPHILS 2 % (0-3); GLOMERULAR FILTRATION RATE > 60.0 (>45); GLUCOSE, FASTING 117 MG/DL (70-100); LYMPHOCYTES 28 % (16-44); MONOCYTES 6 % (0-5); NEUTROPHILS 60 % (28-66); POTASSIUM SERUM 5.3 MEQ/L (3.5-5.1); SODIUM LEVEL 136 MEQ/L (136-145)
[2021-09-20 09:07] LABS: OVALOCYTES 2+; PLATELET ESTIMATE DECREASED (NORMAL); POLYCHROMASIA 1+
[2021-09-20] MEDS ORDERED: NS 1,000 ML IV ONE (09:30)
[2021-09-20] MEDS: FLUCONAZOLE 40MG/ML ORAL SUSP 35ML **DRAW UP EXACT DOSE PO SCH (12:36)
[2021-09-20 14:00] VITALS: BP 99/66
[2021-09-20] MEDS: D5W/0.9% SODIUM CHLORIDE 1,000 ML IV SCH (19:44)
[2021-09-20] MEDS: METOCLOPRAMIDE INJ 10MG/2ML VIAL (J2765 PER 1) IV SCH (20:30)
[2021-09-20 22:00] VITALS: BP 74/54
[2021-09-21] MEDS: METOCLOPRAMIDE INJ 10MG/2ML VIAL (J2765 PER 1) IV SCH ×3 (03:57→19:56)
[2021-09-21] MEDS: D5W/0.9% SODIUM CHLORIDE 1,000 ML IV SCH ×4 (03:58→22:08)
[2021-09-21] MEDS: HEPARIN SOD (PORCINE) 5000UNITS/ML 1ML VIAL/SYRINGE SC SCH ×3 (06:05→22:00)
[2021-09-21 06:31] VITALS: BP 93/60
[2021-09-21 07:33] LABS: BASO % 0.8 % (0.0-1.0); EOS # 0.2 10^3/uL (0.0-0.5); EOS % 6.1 % (0.0-3.0); HEMATOCRIT 29.1 % (36.0-47.0); HEMOGLOBIN 9.6 g/dl (12.0-15.5); LYMPH % 38.6 % (24.0-44.0); MONO # 0.2 10^3/uL (0.0-0.8); MONO % 7.2 % (2.0-8.0); NEUTROPHILS # 1.2 10^3/uL (1.5-8.5); NEUTROPHILS % 46.9 % (36.0-66.0); PLATELET COUNT, AUTOMATED 141 10^3/uL (150-450); WHITE BLOOD COUNT 2.6 10^3/uL (4.0-10.0)
[2021-09-21 08:00] VITALS: BP 72/44
[2021-09-21 08:01] LABS: BLOOD UREA NITROGEN 4 MG/DL (7-18); CALCIUM LEVEL 7.9 MG/DL (8.8-10.2); CARBON DIOXIDE LEVEL 18 MEQ/L (21-32); CHLORIDE LEVEL 109 MEQ/L (98-107); CREATININE FOR GFR 0.42 MG/DL (0.55-1.30); GLOMERULAR FILTRATION RATE > 60.0 (>45); GLUCOSE, FASTING 98 MG/DL (70-100); POTASSIUM SERUM 4.7 MEQ/L (3.5-5.1); SODIUM LEVEL 136 MEQ/L (136-145)
[2021-09-21 08:09] LABS: BODY FLUID CULTURE Not indicated. (.); LEGIONELLA ANTIGEN URINE Negative (Negative); ORGANISM ID Not indicated. (.); SPECIMEN SOURCE Urine (.); URINE STREP PNEUMONIAE ANTIGEN Negative (Negative)
[2021-09-21 08:24] LABS: CORTISOL AM 19.5 UG/DL (4.3-22.4)
[2021-09-21] MEDS: BACTRIM SUSP 160MG/800MG PER 20ML ORAL SYRINGE PEG SCH ×2 (08:53→19:56)
[2021-09-21] MEDS: LACTOBACILLUS ACIDOPHILUS CAP (BACID) PO SCH ×4 (08:53→19:56)
[2021-09-21] MEDS: MIDODRINE 5 MG TAB PO SCH ×3 (08:53→15:59)
[2021-09-21] MEDS: FLUCONAZOLE 40MG/ML ORAL SUSP 35ML **DRAW UP EXACT DOSE PO SCH (10:42)
[2021-09-21] MEDS ORDERED: SODIUM CHLORIDE 0.9% 1000ML IV ONE (13:35)
[2021-09-21 22:00] VITALS: BP 86/57
[2021-09-22] MEDS: METOCLOPRAMIDE INJ 10MG/2ML VIAL (J2765 PER 1) IV SCH ×4 (04:00→20:00)
[2021-09-22] MEDS: HEPARIN SOD (PORCINE) 5000UNITS/ML 1ML VIAL/SYRINGE SC SCH ×4 (05:36→21:02)
[2021-09-22] MEDS: D5W/0.9% SODIUM CHLORIDE 1,000 ML IV SCH ×3 (05:40→21:03)
[2021-09-22 06:00] VITALS: BP 102/66
[2021-09-22] MEDS: LACTOBACILLUS ACIDOPHILUS CAP (BACID) PO SCH ×2 (08:00→12:30)
[2021-09-22 08:04] LABS: BASO % 0.5 % (0.0-1.0); EOS # 0.2 10^3/uL (0.0-0.5); EOS % 7.3 % (0.0-3.0); HEMATOCRIT 27.8 % (36.0-47.0); HEMOGLOBIN 9.1 g/dl (12.0-15.5); LYMPH # 0.8 10^3/uL (1.5-5.0); LYMPH % 38.3 % (24.0-44.0); MEAN CORPUSCULAR HEMOGLOBIN 32.2 pg (27.0-33.0); MEAN CORPUSCULAR HGB CONC 32.7 g/dl (32.0-36.5); MEAN CORPUSCULAR VOLUME 98.2 fl (80.0-96.0); MONO # 0.2 10^3/uL (0.0-0.8); MONO % 8.7 % (2.0-8.0); NEUTROPHILS % 44.7 % (36.0-66.0); PLATELET COUNT, AUTOMATED 131 10^3/uL (150-450); RED BLOOD COUNT 2.83 10^6/uL (4.00-5.40); WHITE BLOOD COUNT 2.1 10^3/uL (4.0-10.0)
[2021-09-22 08:26] LABS: BLOOD UREA NITROGEN 3 MG/DL (7-18); CALCIUM LEVEL 7.6 MG/DL (8.8-10.2); CARBON DIOXIDE LEVEL 20 MEQ/L (21-32); CHLORIDE LEVEL 113 MEQ/L (98-107); CREATININE FOR GFR 0.42 MG/DL (0.55-1.30); GLOMERULAR FILTRATION RATE > 60.0 (>45); GLUCOSE, FASTING 95 MG/DL (70-100); POTASSIUM SERUM 4.3 MEQ/L (3.5-5.1); SODIUM LEVEL 137 MEQ/L (136-145)
[2021-09-22 08:31] LABS: NEUTROPHILS # 0.9 10^3/uL (1.5-8.5)
[2021-09-22] MEDS: BACTRIM SUSP 160MG/800MG PER 20ML ORAL SYRINGE PEG SCH ×2 (09:00→21:02)
[2021-09-22] MEDS: FLUCONAZOLE 40MG/ML ORAL SUSP 35ML **DRAW UP EXACT DOSE PO SCH (09:00)
[2021-09-22] MEDS: MIDODRINE 5 MG TAB PO SCH ×3 (10:06→16:24)
[2021-09-22] MEDS ORDERED: SODIUM CHLORIDE 0.9% INJ 10 ML SYR IV PRN (12:30)
[2021-09-22 14:00] VITALS: BP 100/65
[2021-09-22 16:17] VITALS: BP 70/50
[2021-09-22 22:00] VITALS: BP 106/67
[2021-09-23] MEDS: D5W/0.9% SODIUM CHLORIDE 1,000 ML IV SCH ×4 (03:42→19:05)
[2021-09-23] MEDS: METOCLOPRAMIDE INJ 10MG/2ML VIAL (J2765 PER 1) IV SCH ×2 (03:52→12:50)
[2021-09-23] MEDS: HEPARIN SOD (PORCINE) 5000UNITS/ML 1ML VIAL/SYRINGE SC SCH ×3 (05:50→21:54)
[2021-09-23 06:00] VITALS: BP 101/66
[2021-09-23 07:09] LABS: BASO % 0.4 % (0.0-1.0); EOS # 0.2 10^3/uL (0.0-0.5); EOS % 5.9 % (0.0-3.0); HEMATOCRIT 28.2 % (36.0-47.0); HEMOGLOBIN 9.1 g/dl (12.0-15.5); LYMPH # 0.8 10^3/uL (1.5-5.0); LYMPH % 30.3 % (24.0-44.0); MEAN CORPUSCULAR HEMOGLOBIN 31.9 pg (27.0-33.0); MEAN CORPUSCULAR HGB CONC 32.3 g/dl (32.0-36.5); MEAN CORPUSCULAR VOLUME 98.9 fl (80.0-96.0); MONO # 0.2 10^3/uL (0.0-0.8); MONO % 7.9 % (2.0-8.0); NEUTROPHILS # 1.4 10^3/uL (1.5-8.5); NEUTROPHILS % 55.1 % (36.0-66.0); PLATELET COUNT, AUTOMATED 149 10^3/uL (150-450); RED BLOOD COUNT 2.85 10^6/uL (4.00-5.40); WHITE BLOOD COUNT 2.5 10^3/uL (4.0-10.0)
[2021-09-23 07:36] LABS: BLOOD UREA NITROGEN 3 MG/DL (7-18); CALCIUM LEVEL 8.2 MG/DL (8.8-10.2); CARBON DIOXIDE LEVEL 19 MEQ/L (21-32); CHLORIDE LEVEL 113 MEQ/L (98-107); CREATININE FOR GFR 0.47 MG/DL (0.55-1.30); GLOMERULAR FILTRATION RATE > 60.0 (>45); GLUCOSE, FASTING 84 MG/DL (70-100); SODIUM LEVEL 138 MEQ/L (136-145)
[2021-09-23] MEDS: MIDODRINE 5 MG TAB PO SCH ×3 (08:22→16:53)
[2021-09-23] MEDS: FLUCONAZOLE 40MG/ML ORAL SUSP 35ML **DRAW UP EXACT DOSE PO SCH (08:22)
[2021-09-23 08:25] VITALS: BP 98/66
[2021-09-23] MEDS: SODIUM CHLORIDE 0.9% INJ 10 ML SYR IV SCH (08:31)
[2021-09-23 12:49] VITALS: BP 104/74
[2021-09-23 14:00] VITALS: BP 107/75
[2021-09-23 15:09] LABS: BODY FLUID CULTURE Not indicated. (.); LEGIONELLA ANTIGEN URINE Negative (Negative); ORGANISM ID Not indicated. (.); SPECIMEN SOURCE Urine (.); URINE STREP PNEUMONIAE ANTIGEN Negative (Negative)
[2021-09-23 16:53] VITALS: BP 90/56
[2021-09-23 20:44] VITALS: BP 92/66
[2021-09-23] MEDS: METOCLOPRAMIDE 5 MG TAB PO SCH (21:54)
[2021-09-24] VITALS (7 sets, daily range): BP systolic 93–126; BP diastolic 63–82
[2021-09-24] MEDS: D5W/0.9% SODIUM CHLORIDE 1,000 ML IV SCH ×3 (01:39→21:07)
[2021-09-24] MEDS: HEPARIN SOD (PORCINE) 5000UNITS/ML 1ML VIAL/SYRINGE SC SCH ×3 (05:50→21:02)
[2021-09-24] MEDS: METOCLOPRAMIDE 5 MG TAB PO SCH ×3 (05:50→21:02)
[2021-09-24 05:58] LABS: BASO % 0.5 % (0.0-1.0); EOS # 0.1 10^3/uL (0.0-0.5); HEMATOCRIT 26.5 % (36.0-47.0); HEMOGLOBIN 8.5 g/dl (12.0-15.5); LYMPH # 0.7 10^3/uL (1.5-5.0); MEAN CORPUSCULAR HEMOGLOBIN 32.1 pg (27.0-33.0); MEAN CORPUSCULAR HGB CONC 32.1 g/dl (32.0-36.5); MONO # 0.2 10^3/uL (0.0-0.8); MONO % 9.5 % (2.0-8.0); NEUTROPHILS # 1.1 10^3/uL (1.5-8.5); NEUTROPHILS % 51.5 % (36.0-66.0); PLATELET COUNT, AUTOMATED 145 10^3/uL (150-450); RED BLOOD COUNT 2.65 10^6/uL (4.00-5.40); WHITE BLOOD COUNT 2.2 10^3/uL (4.0-10.0)
[2021-09-24 06:14] LABS: BLOOD UREA NITROGEN 4 MG/DL (7-18); CALCIUM LEVEL 7.9 MG/DL (8.8-10.2); CARBON DIOXIDE LEVEL 22 MEQ/L (21-32); CHLORIDE LEVEL 113 MEQ/L (98-107); CREATININE FOR GFR 0.41 MG/DL (0.55-1.30); GLOMERULAR FILTRATION RATE > 60.0 (>45); GLUCOSE, FASTING 91 MG/DL (70-100); POTASSIUM SERUM 4.6 MEQ/L (3.5-5.1); SODIUM LEVEL 139 MEQ/L (136-145)
[2021-09-24] MEDS: MIDODRINE 5 MG TAB PO SCH ×3 (08:10→16:49)
[2021-09-24] MEDS: FLUCONAZOLE 40MG/ML ORAL SUSP 35ML **DRAW UP EXACT DOSE PO SCH (08:12)
[2021-09-24] MEDS: SODIUM CHLORIDE 0.9% INJ 10 ML SYR IV SCH (08:13)
[2021-09-25] VITALS (7 sets, daily range): BP systolic 86–119; BP diastolic 61–79
[2021-09-25] MEDS: HEPARIN SOD (PORCINE) 5000UNITS/ML 1ML VIAL/SYRINGE SC SCH ×3 (05:21→21:04)
[2021-09-25] MEDS: METOCLOPRAMIDE 5 MG TAB PO SCH ×3 (05:22→21:03)
[2021-09-25] MEDS: FLUCONAZOLE 40MG/ML ORAL SUSP 35ML **DRAW UP EXACT DOSE PO SCH (08:00)
[2021-09-25] MEDS: MIDODRINE 5 MG TAB PO SCH ×3 (08:01→16:49)
[2021-09-25] MEDS: SODIUM CHLORIDE 0.9% INJ 10 ML SYR IV SCH (08:02)
[2021-09-25 10:15] LABS: BASO % 0.4 % (0.0-1.0); EOS # 0.1 10^3/uL (0.0-0.5); EOS % 2.6 % (0.0-3.0); HEMATOCRIT 30.5 % (36.0-47.0); HEMOGLOBIN 9.9 g/dl (12.0-15.5); LYMPH # 0.7 10^3/uL (1.5-5.0); LYMPH % 26.6 % (24.0-44.0); MEAN CORPUSCULAR HEMOGLOBIN 32.1 pg (27.0-33.0); MEAN CORPUSCULAR HGB CONC 32.5 g/dl (32.0-36.5); MONO # 0.2 10^3/uL (0.0-0.8); NEUTROPHILS # 1.7 10^3/uL (1.5-8.5); PLATELET COUNT, AUTOMATED 166 10^3/uL (150-450); RED BLOOD COUNT 3.08 10^6/uL (4.00-5.40); WHITE BLOOD COUNT 2.7 10^3/uL (4.0-10.0)
[2021-09-25 10:53] LABS: BLOOD UREA NITROGEN 4 MG/DL (7-18); CALCIUM LEVEL 8.4 MG/DL (8.8-10.2); CARBON DIOXIDE LEVEL 16 MEQ/L (21-32); CHLORIDE LEVEL 111 MEQ/L (98-107); CREATININE FOR GFR 0.42 MG/DL (0.55-1.30); GLOMERULAR FILTRATION RATE > 60.0 (>45); GLUCOSE, FASTING 93 MG/DL (70-100); POTASSIUM SERUM 3.9 MEQ/L (3.5-5.1); SODIUM LEVEL 134 MEQ/L (136-145)
[2021-09-26] MEDS: HEPARIN SOD (PORCINE) 5000UNITS/ML 1ML VIAL/SYRINGE SC SCH ×3 (05:45→22:00)
[2021-09-26] MEDS: METOCLOPRAMIDE 5 MG TAB PO SCH ×3 (05:45→22:00)
[2021-09-26 06:00] VITALS: BP 94/66
[2021-09-26 06:18] LABS: HEMATOCRIT 27.5 % (36.0-47.0); HEMOGLOBIN 9.2 g/dl (12.0-15.5); MEAN CORPUSCULAR HEMOGLOBIN 32.4 pg (27.0-33.0); MEAN CORPUSCULAR HGB CONC 33.5 g/dl (32.0-36.5); MEAN CORPUSCULAR VOLUME 96.8 fl (80.0-96.0); PLATELET COUNT, AUTOMATED 163 10^3/uL (150-450); RED BLOOD COUNT 2.84 10^6/uL (4.00-5.40); WHITE BLOOD COUNT 2.4 10^3/uL (4.0-10.0)
[2021-09-26 06:41] LABS: BLOOD UREA NITROGEN 6 MG/DL (7-18); CALCIUM LEVEL 8.5 MG/DL (8.8-10.2); CARBON DIOXIDE LEVEL 22 MEQ/L (21-32); CHLORIDE LEVEL 108 MEQ/L (98-107); CREATININE FOR GFR 0.33 MG/DL (0.55-1.30); GLOMERULAR FILTRATION RATE > 60.0 (>45); GLUCOSE, FASTING 91 MG/DL (70-100); SODIUM LEVEL 137 MEQ/L (136-145)
[2021-09-26 06:45] LABS: ATYPICAL LYMPH 1 % (0-5); EOSINOPHILS 3 % (0-3); LYMPHOCYTES 35 % (16-44); MONOCYTES 5 % (0-5); NEUTROPHILS 55 % (28-66)
[2021-09-26 06:46] LABS: ANISOCYTOSIS 2+; PLATELET ESTIMATE NORMAL (NORMAL)
[2021-09-26] MEDS: MIDODRINE 5 MG TAB PO SCH ×3 (09:00→16:27)
[2021-09-26] MEDS: SODIUM CHLORIDE 0.9% INJ 10 ML SYR IV SCH (09:00)
[2021-09-26] MEDS: FLUCONAZOLE 40MG/ML ORAL SUSP 35ML **DRAW UP EXACT DOSE PO SCH (09:00)
[2021-09-26 12:50] VITALS: BP 100/67
[2021-09-26 14:00] VITALS: BP 121/78
[2021-09-26 22:00] VITALS: BP 101/64
[2021-09-27] MEDS: METOCLOPRAMIDE 5 MG TAB PO SCH ×3 (05:36→21:31)
[2021-09-27] MEDS: HEPARIN SOD (PORCINE) 5000UNITS/ML 1ML VIAL/SYRINGE SC SCH ×3 (05:37→21:32)
[2021-09-27 06:00] VITALS: BP 102/66
[2021-09-27 06:31] LABS: BASO % 0.4 % (0.0-1.0); EOS # 0.1 10^3/uL (0.0-0.5); EOS % 2.2 % (0.0-3.0); HEMATOCRIT 26.9 % (36.0-47.0); LYMPH # 0.8 10^3/uL (1.5-5.0); LYMPH % 33.5 % (24.0-44.0); MEAN CORPUSCULAR HEMOGLOBIN 32.6 pg (27.0-33.0); MEAN CORPUSCULAR HGB CONC 33.5 g/dl (32.0-36.5); MEAN CORPUSCULAR VOLUME 97.5 fl (80.0-96.0); MONO # 0.2 10^3/uL (0.0-0.8); MONO % 7.8 % (2.0-8.0); NEUTROPHILS # 1.3 10^3/uL (1.5-8.5); NEUTROPHILS % 56.1 % (36.0-66.0); PLATELET COUNT, AUTOMATED 185 10^3/uL (150-450); RED BLOOD COUNT 2.76 10^6/uL (4.00-5.40); WHITE BLOOD COUNT 2.3 10^3/uL (4.0-10.0)
[2021-09-27 07:01] LABS: BLOOD UREA NITROGEN 7 MG/DL (7-18); CALCIUM LEVEL 8.3 MG/DL (8.8-10.2); CARBON DIOXIDE LEVEL 25 MEQ/L (21-32); CHLORIDE LEVEL 105 MEQ/L (98-107); CREATININE FOR GFR 0.32 MG/DL (0.55-1.30); GLOMERULAR FILTRATION RATE > 60.0 (>45); GLUCOSE, FASTING 93 MG/DL (70-100); POTASSIUM SERUM 4.2 MEQ/L (3.5-5.1); SODIUM LEVEL 135 MEQ/L (136-145)
[2021-09-27] MEDS: MIDODRINE 5 MG TAB PO SCH ×3 (08:38→16:28)
[2021-09-27] MEDS: SODIUM CHLORIDE 0.9% INJ 10 ML SYR IV SCH (08:39)
[2021-09-27 12:11] VITALS: BP 96/65
[2021-09-27 14:00] VITALS: BP 94/65
[2021-09-27 16:30] VITALS: BP 96/65
[2021-09-27 22:00] VITALS: BP 87/50
[2021-09-27] MEDS: D5W/0.9% SODIUM CHLORIDE 1,000 ML IV SCH (23:08)
[2021-09-28 00:12] VITALS: BP 87/50
[2021-09-28] MEDS: METOCLOPRAMIDE 5 MG TAB PO SCH ×3 (05:13→21:44)
[2021-09-28] MEDS: HEPARIN SOD (PORCINE) 5000UNITS/ML 1ML VIAL/SYRINGE SC SCH ×3 (05:13→21:44)
[2021-09-28 06:00] VITALS: BP 92/54
[2021-09-28] MEDS: MIDODRINE 5 MG TAB PO SCH ×3 (08:00→16:41)
[2021-09-28] MEDS: SODIUM CHLORIDE 0.9% INJ 10 ML SYR IV SCH (08:31)
[2021-09-28] MEDS ORDERED: LIDOCAINE 1% MDV 20ML VIAL As Ordered ONE (08:36)
[2021-09-28] MEDS ORDERED: ISOVUE-300 61% 50ML VIAL As Ordered ONE (08:36)
[2021-09-28 10:20] VITALS: BP 99/66
[2021-09-28] MEDS: D5W/0.9% SODIUM CHLORIDE 1,000 ML IV SCH ×2 (11:47→21:41)
[2021-09-28 14:00] VITALS: BP 100/62
[2021-09-28 22:00] VITALS: BP 97/67
[2021-09-29] MEDS: HEPARIN SOD (PORCINE) 5000UNITS/ML 1ML VIAL/SYRINGE SC SCH ×3 (05:09→21:07)
[2021-09-29] MEDS: METOCLOPRAMIDE 5 MG TAB PO SCH ×3 (05:10→21:09)
[2021-09-29 05:44] VITALS: BP 97/54
[2021-09-29] MEDS: MIDODRINE 5 MG TAB PO SCH ×3 (08:07→15:44)
[2021-09-29] MEDS: SODIUM CHLORIDE 0.9% INJ 10 ML SYR IV SCH (08:08)
[2021-09-30] MEDS: METOCLOPRAMIDE 5 MG TAB PO SCH ×2 (05:13→12:56)
[2021-09-30] MEDS: HEPARIN SOD (PORCINE) 5000UNITS/ML 1ML VIAL/SYRINGE SC SCH ×2 (05:13→13:14)
[2021-09-30 06:00] VITALS: BP 90/60
[2021-09-30] MEDS ORDERED: FAMOTIDINE 40MG/5ML ORAL SUSPENSON 50ML BOTTLE GT SCH (09:00)
[2021-09-30] MEDS: MIDODRINE 5 MG TAB PO SCH ×3 (09:10→15:00)
[2021-09-30] MEDS: SODIUM CHLORIDE 0.9% INJ 10 ML SYR IV SCH (09:10)
[2021-09-30] MEDS ORDERED: METO5TAB2 PO (10:16)
[2021-09-30] MEDS ORDERED: DOCU5LIQ GT (15:55)
[2021-10-03] MEDS ORDERED: OMEP-173 PEG (12:38)
[2021-10-28] MEDS ORDERED: OXYC1TAB23 PO (11:22)
[2021-11-02] MEDS ORDERED: LORA1TAB4 (09:39)
== END 2021-09-30 16:31 | disposition home health service (06) | DRG 710 ==
LOC: EDBD 16:10 → M ED 16:10 → M ED INP 22:02 → M MSPAV 23:07
PROVIDERS: ADMIT Internal Medicine; ATTEND Internal Medicine Nephrology
PROC: 0DH67UZ Insertion of Feeding Device into Stomach, Via Natural or Artificial Opening (ICD-10-PCS; principal; 2021-09-28 12:30)
DX: A41.9 Sepsis, unspecified organism (principal); C15.9 Malignant neoplasm of esophagus, unspecified; J96.01 Acute respiratory failure with hypoxia; E43 Unspecified severe protein-calorie malnutrition; D61.810 Antineoplastic chemotherapy induced pancytopenia; J18.9 Pneumonia, unspecified organism; I95.9 Hypotension, unspecified; Z79.899 Other long term (current) drug therapy; Z91.040 Latex allergy status; Z91.030 Bee allergy status; Z85.3 Personal history of malignant neoplasm of breast; Z87.891 Personal history of nicotine dependence; F10.11 Alcohol abuse, in remission; D38.1 Neoplasm of uncertain behavior of trachea, bronchus and lung; R19.7 Diarrhea, unspecified; K21.9 Gastro-esophageal reflux disease without esophagitis; F41.9 Anxiety disorder, unspecified; M54.9 Dorsalgia, unspecified; G93.41 Metabolic encephalopathy; Z92.3 Personal history of irradiation; Z20.822 Contact with and (suspected) exposure to COVID-19

== ENCOUNTER → 2021-09-26 | Outpatient (RCR) | payer OTHER ==
[2021-08-30] MEDS: LORazepam 2 MG/ML VIAL IV ONE ×2 (13:07→14:09)
[2021-08-30 13:15] VITALS: BP 90/54
[~2021-09-26] MED LIST changes: +DIFL50TA PO; +DOCU5LIQ GT; +LORA2TA PO; +MIDO5TA PO; +MOXI400T11 PO; +ONDANSETRON 4MG/2ML VIAL IV ONE; +RISATAB3 PO
== END ==
LOC: M ONCR 08-30 12:03
PROVIDERS: ATTEND General Practice
DX: C15.4 Malignant neoplasm of middle third of esophagus (principal)
CPT/HCPCS: 77336; 77387; 77412; J2060

== ENCOUNTER 2021-10-05 12:00 | Outpatient (RCR) | payer OTHER ==
[2021-08-30 13:15] VITALS: BP 90/54
[~2021-10-05 12:00] MED LIST changes: +METO5TAB2 PO; +OMEP-173 PEG; -ONDANSETRON 4MG/2ML VIAL IV ONE
[2021-10-12] MEDS ORDERED: med note (19:42)
[2021-10-19] MEDS ORDERED: SERT25TA21 GT (07:58)
[2021-10-19] MEDS ORDERED: MIDO5TA GT (07:58)
[2021-10-19] MEDS ORDERED: PRIL10PO2 PO (12:30)
[2021-10-21] MEDS ORDERED: OMEP20.6 PEG (15:22)
[2021-10-28] MEDS ORDERED: OXYC1TAB23 PO (11:22)
== END 2021-10-27 ==
LOC: M ONCR 12:00
PROVIDERS: ATTEND General Practice
DX: C15.4 Malignant neoplasm of middle third of esophagus (principal)

== ENCOUNTER 2021-10-12 13:54 | Inpatient (IN) | payer OTHER ==
[~2021-10-12] VITALS: Ht 182.9 cm; Wt 68.3 kg
[2021-10-12] MEDS ORDERED: NS 1,000 ML IV ONE (15:55)
[2021-10-12 16:01] LABS: BASO % 0.6 % (0.0-1.0); EOS # 0.1 10^3/uL (0.0-0.5); EOS % 2.8 % (0.0-3.0); HEMATOCRIT 40.2 % (36.0-47.0); HEMOGLOBIN 13.4 g/dl (12.0-15.5); LYMPH # 0.5 10^3/uL (1.5-5.0); LYMPH % 27.7 % (24.0-44.0); MEAN CORPUSCULAR HEMOGLOBIN 32.6 pg (27.0-33.0); MEAN CORPUSCULAR HGB CONC 33.3 g/dl (32.0-36.5); MEAN CORPUSCULAR VOLUME 97.8 fl (80.0-96.0); MONO # 0.2 10^3/uL (0.0-0.8); MONO % 10.2 % (2.0-8.0); NEUTROPHILS % 58.1 % (36.0-66.0); PLATELET COUNT, AUTOMATED 159 10^3/uL (150-450); RED BLOOD COUNT 4.11 10^6/uL (4.00-5.40); WHITE BLOOD COUNT 1.8 10^3/uL (4.0-10.0)
[2021-10-12 16:30] LABS: ALBUMIN 2.8 GM/DL (3.2-5.2); ALT/SGPT 16 U/L (12-78); BILIRUBIN,DIRECT 0.3 MG/DL (0.0-0.2); BILIRUBIN,TOTAL 0.8 MG/DL (0.2-1.0); BLOOD UREA NITROGEN 13 MG/DL (7-18); CALCIUM LEVEL 8.7 MG/DL (8.8-10.2); CARBON DIOXIDE LEVEL 33 MEQ/L (21-32); CHLORIDE LEVEL 95 MEQ/L (98-107); CREATININE FOR GFR 0.46 MG/DL (0.55-1.30); FREE T4 1.17 NG/DL (0.76-1.46); GLOMERULAR FILTRATION RATE > 60.0 (>45); GLUCOSE, FASTING 86 MG/DL (70-100); MAGNESIUM LEVEL 1.9 MG/DL (1.8-2.4); POTASSIUM SERUM 3.3 MEQ/L (3.5-5.1); SODIUM LEVEL 134 MEQ/L (136-145)
[2021-10-12] MEDS ORDERED: POTASSIUM CHLORIDE 10% LIQ 20 MEQ/15 ML UDC GT ONE (16:40)
[2021-10-12] MEDS ORDERED: LORazepam 2 MG TAB GT PRN (18:55)
[2021-10-12] MEDS ORDERED: DOCUSATE SOD LIQ 100MG/10ML UDC GT PRN (18:55)
[2021-10-12] MEDS ORDERED: CYCLOBENZAPRINE 10MG TABLET GT PRN (18:55)
[2021-10-12] MEDS ORDERED: METOCLOPRAMIDE 5 MG TAB GT PRN (18:55)
[2021-10-12] MEDS ORDERED: med note (19:42)
[2021-10-12] MEDS ORDERED: HOME MED LIST COMPLETE! XX SCH (19:45)
[2021-10-12] MEDS: LACTOBACILLUS ACIDOPHILUS CAP (BACID) PEG SCH (21:00)
[2021-10-13 02:20] VITALS: BP 104/68
[2021-10-13 06:00] VITALS: BP 95/61
[2021-10-13 06:42] LABS: HEMATOCRIT 28.4 % (36.0-47.0); MEAN CORPUSCULAR HEMOGLOBIN 32.5 pg (27.0-33.0); MEAN CORPUSCULAR HGB CONC 32.7 g/dl (32.0-36.5); MEAN CORPUSCULAR VOLUME 99.3 fl (80.0-96.0); PLATELET COUNT, AUTOMATED 220 10^3/uL (150-450); RED BLOOD COUNT 2.86 10^6/uL (4.00-5.40); WHITE BLOOD COUNT 2.6 10^3/uL (4.0-10.0)
[2021-10-13 06:48] LABS: HEMOGLOBIN 9.3 g/dl (12.0-15.5)
[2021-10-13 07:03] LABS: BLOOD UREA NITROGEN 8 MG/DL (7-18); CALCIUM LEVEL 8.3 MG/DL (8.8-10.2); CARBON DIOXIDE LEVEL 29 MEQ/L (21-32); CHLORIDE LEVEL 102 MEQ/L (98-107); CREATININE FOR GFR 0.44 MG/DL (0.55-1.30); GLOMERULAR FILTRATION RATE > 60.0 (>45); GLUCOSE, FASTING 80 MG/DL (70-100); MAGNESIUM LEVEL 1.8 MG/DL (1.8-2.4); POTASSIUM SERUM 3.5 MEQ/L (3.5-5.1); SODIUM LEVEL 137 MEQ/L (136-145)
[2021-10-13] MEDS: LACTOBACILLUS ACIDOPHILUS CAP (BACID) PEG SCH ×4 (08:00→21:00)
[2021-10-13] MEDS: OMEPRAZOLE SUSPENSION 20MG 10ML ORAL SYRINGE GT SCH (08:56)
[2021-10-13] MEDS: MIDODRINE 5 MG TAB GT SCH ×3 (08:56→16:56)
[2021-10-13] MEDS: ENOXAPARIN 40MG/0.4ML SYRINGE (J1650 PER 10MG) SC SCH (08:57)
[2021-10-13 16:01] VITALS: BP 101/70
[2021-10-13 22:00] VITALS: BP 99/69
[2021-10-14] VITALS (9 sets, daily range): BP systolic 89–151; BP diastolic 50–87
[2021-10-14 07:56] LABS: HEMATOCRIT 29.4 % (36.0-47.0); HEMOGLOBIN 9.7 g/dl (12.0-15.5); MEAN CORPUSCULAR HEMOGLOBIN 32.7 pg (27.0-33.0); PLATELET COUNT, AUTOMATED 231 10^3/uL (150-450); RED BLOOD COUNT 2.97 10^6/uL (4.00-5.40); WHITE BLOOD COUNT 3.1 10^3/uL (4.0-10.0)
[2021-10-14 08:29] LABS: BLOOD UREA NITROGEN 9 MG/DL (7-18); CALCIUM LEVEL 8.4 MG/DL (8.8-10.2); CARBON DIOXIDE LEVEL 29 MEQ/L (21-32); CHLORIDE LEVEL 101 MEQ/L (98-107); CREATININE FOR GFR 0.38 MG/DL (0.55-1.30); GLOMERULAR FILTRATION RATE > 60.0 (>45); GLUCOSE, FASTING 111 MG/DL (70-100); MAGNESIUM LEVEL 1.7 MG/DL (1.8-2.4); POTASSIUM SERUM 3.2 MEQ/L (3.5-5.1); SODIUM LEVEL 138 MEQ/L (136-145)
[2021-10-14] MEDS: OMEPRAZOLE SUSPENSION 20MG 10ML ORAL SYRINGE GT SCH (08:47)
[2021-10-14] MEDS: LACTOBACILLUS ACIDOPHILUS CAP (BACID) PEG SCH ×4 (08:47→21:20)
[2021-10-14] MEDS: MIDODRINE 5 MG TAB GT SCH ×3 (08:47→17:03)
[2021-10-14] MEDS: ENOXAPARIN 40MG/0.4ML SYRINGE (J1650 PER 10MG) SC SCH (08:48)
[2021-10-14] MEDS ORDERED: POTASSIUM CHLORIDE 10% LIQ 20 MEQ/15 ML UDC GT ONE (14:00)
[2021-10-15 01:51] VITALS: BP 104/68
[2021-10-15 05:42] VITALS: BP 104/68
[2021-10-15 06:07] LABS: HEMATOCRIT 29.5 % (36.0-47.0); HEMOGLOBIN 9.9 g/dl (12.0-15.5); MEAN CORPUSCULAR HEMOGLOBIN 33.3 pg (27.0-33.0); MEAN CORPUSCULAR HGB CONC 33.6 g/dl (32.0-36.5); MEAN CORPUSCULAR VOLUME 99.3 fl (80.0-96.0); PLATELET COUNT, AUTOMATED 242 10^3/uL (150-450); RED BLOOD COUNT 2.97 10^6/uL (4.00-5.40)
[2021-10-15 06:35] LABS: BLOOD UREA NITROGEN 10 MG/DL (7-18); CALCIUM LEVEL 8.4 MG/DL (8.8-10.2); CARBON DIOXIDE LEVEL 30 MEQ/L (21-32); CHLORIDE LEVEL 103 MEQ/L (98-107); CREATININE FOR GFR 0.37 MG/DL (0.55-1.30); GLOMERULAR FILTRATION RATE > 60.0 (>45); GLUCOSE, FASTING 110 MG/DL (70-100); MAGNESIUM LEVEL 1.6 MG/DL (1.8-2.4); POTASSIUM SERUM 3.5 MEQ/L (3.5-5.1); SODIUM LEVEL 136 MEQ/L (136-145)
[2021-10-15] MEDS: ENOXAPARIN 40MG/0.4ML SYRINGE (J1650 PER 10MG) SC SCH (09:57)
[2021-10-15] MEDS: LACTOBACILLUS ACIDOPHILUS CAP (BACID) PEG SCH ×4 (09:57→21:17)
[2021-10-15] MEDS: OMEPRAZOLE SUSPENSION 20MG 10ML ORAL SYRINGE GT SCH (09:57)
[2021-10-15] MEDS: MIDODRINE 5 MG TAB GT SCH ×3 (09:58→15:43)
[2021-10-15 10:00] VITALS: BP 107/70
[2021-10-15] MEDS ORDERED: POTASSIUM CHLORIDE 10% LIQ 20 MEQ/15 ML UDC PO ONE (10:00)
[2021-10-15] MEDS ORDERED: MAG SULF 1GM/100ML (MAG RUN) 1 GM in IV 1 EA IV ONE (10:00)
[2021-10-15 14:00] VITALS: BP 134/87
[2021-10-15] MEDS ORDERED: SODIUM CHLORIDE 0.9% INJ 10 ML SYR IV PRN (16:00)
[2021-10-15 18:00] VITALS: BP 135/87
[2021-10-15] MEDS: SERTRALINE HCL 25 MG TABLET GT SCH (21:17)
[2021-10-15 22:00] VITALS: BP 116/79
[2021-10-16 02:00] VITALS: BP 101/66
[2021-10-16 05:50] LABS: HEMATOCRIT 29.7 % (36.0-47.0); HEMOGLOBIN 9.7 g/dl (12.0-15.5); MEAN CORPUSCULAR HEMOGLOBIN 32.7 pg (27.0-33.0); MEAN CORPUSCULAR HGB CONC 32.7 g/dl (32.0-36.5); PLATELET COUNT, AUTOMATED 236 10^3/uL (150-450); RED BLOOD COUNT 2.97 10^6/uL (4.00-5.40); WHITE BLOOD COUNT 2.8 10^3/uL (4.0-10.0)
[2021-10-16 06:00] VITALS: BP 122/82
[2021-10-16 06:19] LABS: BLOOD UREA NITROGEN 8 MG/DL (7-18); CALCIUM LEVEL 8.1 MG/DL (8.8-10.2); CARBON DIOXIDE LEVEL 27 MEQ/L (21-32); CHLORIDE LEVEL 105 MEQ/L (98-107); CREATININE FOR GFR 0.31 MG/DL (0.55-1.30); GLOMERULAR FILTRATION RATE > 60.0 (>45); GLUCOSE, FASTING 96 MG/DL (70-100); MAGNESIUM LEVEL 1.7 MG/DL (1.8-2.4); POTASSIUM SERUM 3.9 MEQ/L (3.5-5.1); SODIUM LEVEL 136 MEQ/L (136-145)
[2021-10-16 10:00] VITALS: BP 90/63
[2021-10-16] MEDS ORDERED: MAG SULF 1GM/100ML (MAG RUN) 1 GM in IV 1 EA IV ONE (10:00)
[2021-10-16] MEDS: MIDODRINE 5 MG TAB GT SCH ×3 (10:57→16:51)
[2021-10-16] MEDS: ENOXAPARIN 40MG/0.4ML SYRINGE (J1650 PER 10MG) SC SCH (11:02)
[2021-10-16] MEDS: OMEPRAZOLE SUSPENSION 20MG 10ML ORAL SYRINGE GT SCH (11:02)
[2021-10-16] MEDS: SODIUM CHLORIDE 0.9% INJ 10 ML SYR IV SCH (11:02)
[2021-10-16] MEDS: LACTOBACILLUS ACIDOPHILUS CAP (BACID) PEG SCH ×4 (11:04→21:13)
[2021-10-16 14:00] VITALS: BP 111/74
[2021-10-16] MEDS: SERTRALINE HCL 25 MG TABLET GT SCH (21:13)
[2021-10-16 22:00] VITALS: BP 111/75
[2021-10-17 02:00] VITALS: BP 98/63
[2021-10-17 06:00] VITALS: BP 123/78
[2021-10-17 06:24] LABS: HEMATOCRIT 30.1 % (36.0-47.0); HEMOGLOBIN 9.8 g/dl (12.0-15.5); MEAN CORPUSCULAR HEMOGLOBIN 32.7 pg (27.0-33.0); MEAN CORPUSCULAR HGB CONC 32.6 g/dl (32.0-36.5); MEAN CORPUSCULAR VOLUME 100.3 fl (80.0-96.0); PLATELET COUNT, AUTOMATED 244 10^3/uL (150-450); WHITE BLOOD COUNT 3.2 10^3/uL (4.0-10.0)
[2021-10-17 06:42] LABS: BLOOD UREA NITROGEN 11 MG/DL (7-18); CALCIUM LEVEL 8.3 MG/DL (8.8-10.2); CARBON DIOXIDE LEVEL 26 MEQ/L (21-32); CHLORIDE LEVEL 105 MEQ/L (98-107); CREATININE FOR GFR 0.32 MG/DL (0.55-1.30); GLOMERULAR FILTRATION RATE > 60.0 (>45); GLUCOSE, FASTING 105 MG/DL (70-100); MAGNESIUM LEVEL 1.9 MG/DL (1.8-2.4); POTASSIUM SERUM 3.8 MEQ/L (3.5-5.1); SODIUM LEVEL 135 MEQ/L (136-145)
[2021-10-17] MEDS: LACTOBACILLUS ACIDOPHILUS CAP (BACID) PEG SCH ×4 (09:04→21:45)
[2021-10-17] MEDS: OMEPRAZOLE SUSPENSION 20MG 10ML ORAL SYRINGE GT SCH (09:04)
[2021-10-17] MEDS: MIDODRINE 5 MG TAB GT SCH ×3 (09:04→17:09)
[2021-10-17] MEDS: ENOXAPARIN 40MG/0.4ML SYRINGE (J1650 PER 10MG) SC SCH (09:05)
[2021-10-17] MEDS: SODIUM CHLORIDE 0.9% INJ 10 ML SYR IV SCH (09:05)
[2021-10-17 10:00] VITALS: BP 109/79
[2021-10-17 14:00] VITALS: BP 114/79
[2021-10-17 21:45] VITALS: BP 114/79
[2021-10-17] MEDS: SERTRALINE HCL 25 MG TABLET GT SCH (21:45)
[2021-10-18 06:00] VITALS: BP 127/79
[2021-10-18] MEDS: ENOXAPARIN 40MG/0.4ML SYRINGE (J1650 PER 10MG) SC SCH (08:39)
[2021-10-18] MEDS: LACTOBACILLUS ACIDOPHILUS CAP (BACID) PEG SCH ×4 (08:39→20:29)
[2021-10-18] MEDS: OMEPRAZOLE SUSPENSION 20MG 10ML ORAL SYRINGE GT SCH (08:39)
[2021-10-18] MEDS: MIDODRINE 5 MG TAB GT SCH ×3 (08:39→16:26)
[2021-10-18] MEDS: SODIUM CHLORIDE 0.9% INJ 10 ML SYR IV SCH (08:40)
[2021-10-18 14:00] VITALS: BP 106/76
[2021-10-18] MEDS: traMADol 50 MG TAB GT PRN (16:26)
[2021-10-18] MEDS: SERTRALINE HCL 25 MG TABLET GT SCH (20:28)
[2021-10-18 22:00] VITALS: BP 117/79
[2021-10-19] MEDS: traMADol 50 MG TAB GT PRN (05:07)
[2021-10-19 06:00] VITALS: BP 96/60
[2021-10-19 06:55] LABS: HEMATOCRIT 31.7 % (36.0-47.0); HEMOGLOBIN 10.5 g/dl (12.0-15.5); MEAN CORPUSCULAR HEMOGLOBIN 33.2 pg (27.0-33.0); MEAN CORPUSCULAR HGB CONC 33.1 g/dl (32.0-36.5); MEAN CORPUSCULAR VOLUME 100.3 fl (80.0-96.0); PLATELET COUNT, AUTOMATED 244 10^3/uL (150-450); RED BLOOD COUNT 3.16 10^6/uL (4.00-5.40)
[2021-10-19 07:27] LABS: BLOOD UREA NITROGEN 14 MG/DL (7-18); CALCIUM LEVEL 8.9 MG/DL (8.8-10.2); CARBON DIOXIDE LEVEL 25 MEQ/L (21-32); CHLORIDE LEVEL 103 MEQ/L (98-107); CREATININE FOR GFR 0.35 MG/DL (0.55-1.30); GLOMERULAR FILTRATION RATE > 60.0 (>45); GLUCOSE, FASTING 83 MG/DL (70-100); MAGNESIUM LEVEL 1.9 MG/DL (1.8-2.4); POTASSIUM SERUM 3.7 MEQ/L (3.5-5.1); SODIUM LEVEL 136 MEQ/L (136-145)
[2021-10-19] MEDS ORDERED: SERT25TA21 GT (07:58)
[2021-10-19] MEDS ORDERED: MIDO5TA GT (07:58)
[2021-10-19] MEDS: LACTOBACILLUS ACIDOPHILUS CAP (BACID) PEG SCH (09:34)
[2021-10-19] MEDS: OMEPRAZOLE SUSPENSION 20MG 10ML ORAL SYRINGE GT SCH (09:35)
[2021-10-19] MEDS: MIDODRINE 5 MG TAB GT SCH (09:35)
[2021-10-19] MEDS: ENOXAPARIN 40MG/0.4ML SYRINGE (J1650 PER 10MG) SC SCH (09:35)
[2021-10-19] MEDS: SODIUM CHLORIDE 0.9% INJ 10 ML SYR IV SCH (09:36)
[2021-10-19] MEDS ORDERED: PRIL10PO2 PO (12:30)
== END 2021-10-19 12:45 | disposition home health service (06) | DRG 422 ==
LOC: EDBD 13:54 → M ED 13:54 → M ED INP 18:55 → ENRESERV 10-13 00:42 → M MS5PR 10-13 02:11
PROVIDERS: ADMIT Internal Medicine; ATTEND Internal Medicine
DX: E86.0 Dehydration (principal); C15.9 Malignant neoplasm of esophagus, unspecified; I95.1 Orthostatic hypotension; D72.819 Decreased white blood cell count, unspecified; R13.10 Dysphagia, unspecified; Z85.3 Personal history of malignant neoplasm of breast; Z92.3 Personal history of irradiation; Z92.21 Personal history of antineoplastic chemotherapy; F41.9 Anxiety disorder, unspecified; F32.A Depression, unspecified; M54.9 Dorsalgia, unspecified; K21.9 Gastro-esophageal reflux disease without esophagitis; Z87.891 Personal history of nicotine dependence; R62.7 Adult failure to thrive; Z66 Do not resuscitate

== ENCOUNTER → 2021-10-24 | Outpatient (CLI) | payer OTHER ==
[~2021-10-24] MED LIST changes: +MIDO5TA GT; +OMEP20.6 PEG; +PRIL10PO2 PO; +SERT25TA21 GT; +med note
== END ==
LOC: M PLARAD 11:07
PROVIDERS: ATTEND General Practice
DX: C15.4 Malignant neoplasm of middle third of esophagus (principal); K80.20 Calculus of gallbladder without cholecystitis without obstruction; Z95.828 Presence of other vascular implants and grafts; R91.8 Other nonspecific abnormal finding of lung field
CPT/HCPCS: 78815; A9552

== ENCOUNTER → 2021-11-02 | Outpatient (CLI) | payer OTHER ==
[~2021-11-02] MED LIST changes: +LORA1TAB4
== END ==
LOC: M ONCR 10:37
PROVIDERS: ATTEND General Practice
DX: C15.4 Malignant neoplasm of middle third of esophagus (principal); C78.01 Secondary malignant neoplasm of right lung; F17.210 Nicotine dependence, cigarettes, uncomplicated; Z85.3 Personal history of malignant neoplasm of breast; Z86.16 Personal history of COVID-19; Z72.89 Other problems related to lifestyle; Z92.21 Personal history of antineoplastic chemotherapy; Z92.3 Personal history of irradiation

== ENCOUNTER 2021-11-07 21:09 | Emergency (ER) | payer OTHER ==
[~2021-11-07] VITALS: Ht 182.9 cm; Wt 72.7 kg
[2021-11-07 21:17] VITALS: BP 139/91
[2021-11-07 22:40] LABS: BASO % 0.4 % (0.0-1.0); EOS # 0.2 10^3/uL (0.0-0.5); EOS % 4.4 % (0.0-3.0); HEMATOCRIT 30.8 % (36.0-47.0); LYMPH # 0.8 10^3/uL (1.5-5.0); LYMPH % 14.3 % (24.0-44.0); MEAN CORPUSCULAR HEMOGLOBIN 33.2 pg (27.0-33.0); MEAN CORPUSCULAR HGB CONC 32.5 g/dl (32.0-36.5); MEAN CORPUSCULAR VOLUME 102.3 fl (80.0-96.0); MONO # 0.6 10^3/uL (0.0-0.8); MONO % 10.5 % (2.0-8.0); NEUTROPHILS # 3.8 10^3/uL (1.5-8.5); NEUTROPHILS % 70.2 % (36.0-66.0); PLATELET COUNT, AUTOMATED 242 10^3/uL (150-450); RED BLOOD COUNT 3.01 10^6/uL (4.00-5.40); WHITE BLOOD COUNT 5.4 10^3/uL (4.0-10.0)
[2021-11-07] MEDS: GASTROGRAFIN SOLUTION 30ML (Q9963) PO SCH ×3 (23:15→23:39)
[2021-11-08] MEDS: GASTROGRAFIN SOLUTION 30ML (Q9963) PO SCH ×2 (00:45→01:38)
== END 2021-11-08 02:30 | disposition home or self-care (01) ==
LOC: M ED 21:09
DX: T85.528A Displacement of other gastrointestinal prosthetic devices, implants and grafts, initial encounter (principal); Z86.16 Personal history of COVID-19; Z87.01 Personal history of pneumonia (recurrent); Z87.891 Personal history of nicotine dependence; Z85.01 Personal history of malignant neoplasm of esophagus; Z85.3 Personal history of malignant neoplasm of breast; K76.0 Fatty (change of) liver, not elsewhere classified; M50.90 Cervical disc disorder, unspecified, unspecified cervical region; F10.10 Alcohol abuse, uncomplicated; F41.9 Anxiety disorder, unspecified; F32.9 Major depressive disorder, single episode, unspecified; Z92.21 Personal history of antineoplastic chemotherapy; Z92.3 Personal history of irradiation; Z79.899 Other long term (current) drug therapy; Z91.030 Bee allergy status; Z91.040 Latex allergy status
CPT/HCPCS: 36415; 74018; 85025; 99283; Q9963

== ENCOUNTER → 2021-11-18 | Outpatient (CLI) | payer OTHER ==
[~2021-11-18] MED LIST changes: +E-Z-GAS II EFFERVESCENT PACKET (SODIUM BICARB./CITRIC ACID/SIMETHICONE) As Ordered ONE; +E-Z-HD 98% w/w 340GM SUSP BTL As Ordered ONE; +E-Z-PAQUE 96% w/w SUSP 176GM BTL As Ordered ONE; +LANS30CA93
== END ==
LOC: M RAD 08:36
PROVIDERS: ATTEND Specialist
DX: C15.4 Malignant neoplasm of middle third of esophagus (principal)

== ENCOUNTER → 2021-11-23 | Outpatient (CLI) | payer OTHER ==
[~2021-11-23] MED LIST changes: -E-Z-GAS II EFFERVESCENT PACKET (SODIUM BICARB./CITRIC ACID/SIMETHICONE) As Ordered ONE; -E-Z-HD 98% w/w 340GM SUSP BTL As Ordered ONE; -E-Z-PAQUE 96% w/w SUSP 176GM BTL As Ordered ONE
== END ==
LOC: M RAD 08:35
PROVIDERS: ATTEND Specialist
DX: Z85.09 Personal history of malignant neoplasm of other digestive organs (principal)
CPT/HCPCS: 78306; A9503

== ENCOUNTER → 2021-11-30 | Outpatient (CLI) | payer OTHER ==
[~2021-11-30] MED LIST changes: +CYCL-707; +MORP-69 PO; +SERT-141 PO
== END ==
LOC: M ONCR 10:27
PROVIDERS: ATTEND General Practice
DX: C15.4 Malignant neoplasm of middle third of esophagus (principal); F17.210 Nicotine dependence, cigarettes, uncomplicated; Z92.3 Personal history of irradiation; Z92.21 Personal history of antineoplastic chemotherapy; Z91.030 Bee allergy status; Z91.040 Latex allergy status; Z79.899 Other long term (current) drug therapy

== ENCOUNTER 2021-12-01 15:05 | Emergency (ER) | payer OTHER ==
[~2021-12-01] VITALS: Ht 182.9 cm; Wt 68.6 kg
[~2021-12-01 15:05] MED LIST changes: +SODIUM CHLORIDE 0.9% INJ 10 ML SYR IV SCH
[2021-12-01 15:25] VITALS: BP 104/73
[2021-12-01] MEDS ORDERED: NS 1,000 ML IV ONE (15:40)
[2021-12-01 16:44] LABS: BASO % 0.4 % (0.0-1.0); EOS # 0.2 10^3/uL (0.0-0.5); EOS % 4.8 % (0.0-3.0); HEMATOCRIT 36.4 % (36.0-47.0); HEMOGLOBIN 11.8 g/dl (12.0-15.5); LYMPH # 1.3 10^3/uL (1.5-5.0); LYMPH % 27.7 % (24.0-44.0); MEAN CORPUSCULAR HEMOGLOBIN 32.3 pg (27.0-33.0); MEAN CORPUSCULAR HGB CONC 32.4 g/dl (32.0-36.5); MEAN CORPUSCULAR VOLUME 99.7 fl (80.0-96.0); MONO # 0.6 10^3/uL (0.0-0.8); MONO % 12.6 % (2.0-8.0); NEUTROPHILS # 2.5 10^3/uL (1.5-8.5); NEUTROPHILS % 54.1 % (36.0-66.0); PLATELET COUNT, AUTOMATED 211 10^3/uL (150-450); RED BLOOD COUNT 3.65 10^6/uL (4.00-5.40); WHITE BLOOD COUNT 4.6 10^3/uL (4.0-10.0)
[2021-12-01 17:21] LABS: BLOOD UREA NITROGEN 8 MG/DL (7-18); CALCIUM LEVEL 8.6 MG/DL (8.8-10.2); CARBON DIOXIDE LEVEL 25 MEQ/L (21-32); CHLORIDE LEVEL 107 MEQ/L (98-107); CREATININE FOR GFR 0.27 MG/DL (0.55-1.30); FREE T4 0.98 NG/DL (0.76-1.46); GLOMERULAR FILTRATION RATE > 60.0 (>45); GLUCOSE, FASTING 88 MG/DL (70-100); MAGNESIUM LEVEL 1.6 MG/DL (1.8-2.4); POTASSIUM SERUM 3.4 MEQ/L (3.5-5.1); SODIUM LEVEL 139 MEQ/L (136-145); THYROID STIMULATING HORMONE 0.724 uIU/ML (0.358-3.740)
[2021-12-01] MEDS ORDERED: MAGNESIUM OXIDE 400MG TAB (MAG-OX) PO ONE (18:30)
== END 2021-12-01 19:21 | disposition home or self-care (01) ==
LOC: M ED 15:05
DX: E83.42 Hypomagnesemia (principal); I47.1 Supraventricular tachycardia; I10 Essential (primary) hypertension; E03.9 Hypothyroidism, unspecified; C15.4 Malignant neoplasm of middle third of esophagus; Z85.3 Personal history of malignant neoplasm of breast; Z91.030 Bee allergy status; Z91.040 Latex allergy status; Z79.899 Other long term (current) drug therapy
CPT/HCPCS: 71045; 80048; 83735; 84439; 84443; 85025; 93005; 93041; 94760; 96360; 96361; 99284; J1642

== ENCOUNTER → 2021-12-08 | Outpatient (CLI) | payer OTHER ==
[~2021-12-08] MED LIST changes: -SODIUM CHLORIDE 0.9% INJ 10 ML SYR IV SCH
== END ==
LOC: M SOG 08:41
PROVIDERS: ATTEND Orthopaedic Surgery Adult Reconstructive Orthopaedic Surgery
DX: M17.11 Unilateral primary osteoarthritis, right knee (principal); M89.8X6 Other specified disorders of bone, lower leg; M25.561 Pain in right knee

== ENCOUNTER → 2022-01-19 | Outpatient (CLI) | payer OTHER ==
[~2022-01-19] MED LIST changes: +MORP15TA2 PO
== END ==
LOC: M PLAIMG 09:09
PROVIDERS: ATTEND Orthopaedic Surgery Adult Reconstructive Orthopaedic Surgery
DX: M87.9 Osteonecrosis, unspecified (principal); M25.761 Osteophyte, right knee; M25.461 Effusion, right knee; S83.281A Other tear of lateral meniscus, current injury, right knee, initial encounter; X58.XXXA Exposure to other specified factors, initial encounter; Y92.9 Unspecified place or not applicable; Y93.9 Activity, unspecified; Y99.9 Unspecified external cause status; M85.661 Other cyst of bone, right lower leg; S83.282A Other tear of lateral meniscus, current injury, left knee, initial encounter; M85.662 Other cyst of bone, left lower leg; M94.262 Chondromalacia, left knee

== ENCOUNTER 2022-01-26 14:38 | Emergency (ER) | payer OTHER ==
[2022-01-26] MEDS ORDERED: SODIUM CHLORIDE 0.9% INJ 10 ML SYR IV PRN (15:10)
[2022-01-26] MEDS ORDERED: MORPHINE 4 MG/ML 1ML VIAL/SYRINGE IV ONE (15:10)
[2022-01-26] MEDS ORDERED: NS 1,000 ML IV ONE (15:15)
[2022-01-26 15:30] LABS: BASO % 0.4 % (0.0-1.0); EOS # 0.2 10^3/uL (0.0-0.5); EOS % 2.2 % (0.0-3.0); HEMATOCRIT 33.9 % (36.0-47.0); HEMOGLOBIN 11.5 g/dl (12.0-15.5); LYMPH # 0.9 10^3/uL (1.5-5.0); LYMPH % 12.3 % (24.0-44.0); MEAN CORPUSCULAR HEMOGLOBIN 31.3 pg (27.0-33.0); MEAN CORPUSCULAR HGB CONC 33.9 g/dl (32.0-36.5); MEAN CORPUSCULAR VOLUME 92.1 fl (80.0-96.0); MONO # 0.4 10^3/uL (0.0-0.8); MONO % 6.2 % (2.0-8.0); NEUTROPHILS # 5.4 10^3/uL (1.5-8.5); NEUTROPHILS % 78.5 % (36.0-66.0); PLATELET COUNT, AUTOMATED 278 10^3/uL (150-450); RED BLOOD COUNT 3.68 10^6/uL (4.00-5.40); WHITE BLOOD COUNT 6.9 10^3/uL (4.0-10.0)
[2022-01-26 16:06] LABS: ALBUMIN 3.5 GM/DL (3.2-5.2); ALT/SGPT 15 U/L (12-78); BILIRUBIN,DIRECT 0.4 MG/DL (0.0-0.2); BILIRUBIN,TOTAL 0.9 MG/DL (0.2-1.0); BLOOD UREA NITROGEN 11 MG/DL (7-18); CALCIUM LEVEL 9.4 MG/DL (8.8-10.2); CARBON DIOXIDE LEVEL 31 MEQ/L (21-32); CHLORIDE LEVEL 96 MEQ/L (98-107); CREATININE FOR GFR 0.58 MG/DL (0.55-1.30); GLOMERULAR FILTRATION RATE > 60.0 (>45); GLUCOSE, FASTING 129 MG/DL (70-100); POTASSIUM SERUM 3.4 MEQ/L (3.5-5.1); SODIUM LEVEL 135 MEQ/L (136-145); TOTAL PROTEIN 7.1 GM/DL (6.4-8.2)
[2022-01-26] MEDS ORDERED: ISOVUE-370 76% 100ML VIAL As Ordered ONE (16:11)
[2022-01-26 17:30] VITALS: BP 101/59
[2022-01-27] MEDS ORDERED: MORP15TA2 PO (11:41)
[2022-01-27] MEDS ORDERED: METO5TAB2 PO (11:41)
== END 2022-01-26 19:01 | disposition home or self-care (01) ==
LOC: M ED 14:38
DX: C15.9 Malignant neoplasm of esophagus, unspecified (principal); R05.9 Cough, unspecified; I10 Essential (primary) hypertension; E78.5 Hyperlipidemia, unspecified; F17.200 Nicotine dependence, unspecified, uncomplicated; Z85.3 Personal history of malignant neoplasm of breast; Z79.899 Other long term (current) drug therapy; Z91.040 Latex allergy status; Z91.030 Bee allergy status
CPT/HCPCS: 71045; 71275; 80048; 80076; 85025; 87486; 87581; 87633; 87798; 96361; 96374; 96375; 99284; J1642; J2270; Q9967

== ENCOUNTER → 2022-01-31 | Outpatient (CLI) | payer OTHER | LOC: M ONCR 09:38 | PROVIDERS: ATTEND General Practice | DX: C15.4 Malignant neoplasm of middle third of esophagus (principal); C77.1 Secondary and unspecified malignant neoplasm of intrathoracic lymph nodes; F17.210 Nicotine dependence, cigarettes, uncomplicated; K94.23 Gastrostomy malfunction; R91.8 Other nonspecific abnormal finding of lung field; R53.83 Other fatigue; R63.4 Abnormal weight loss; Z79.891 Long term (current) use of opiate analgesic; Z79.899 Other long term (current) drug therapy; Z85.3 Personal history of malignant neoplasm of breast; Z86.16 Personal history of COVID-19; Z91.040 Latex allergy status; Z91.030 Bee allergy status; Z92.21 Personal history of antineoplastic chemotherapy; Z92.3 Personal history of irradiation ==